=== PATIENT | male | born 1950 | race Caucasian/White ===

== ENCOUNTER → 2018-11-04 10:21 | Outpatient (CLI) | payer OTHER, SELFPAY ==
--- NOTE | 2018-11-04 | DI.RAD.S_ITS ---
PROCEDURE: XR CHEST 2V INDICATIONS: PNEUMONIA TECHNIQUE: 2 views of the chest were acquired. COMPARISON: None. FINDINGS: Surgical changes and devices: None. Lungs and pleura: Lungs are clear. No pleural effusions or pneumothorax. Mediastinum: Mediastinal contours are normal. Heart size is normal. Patient is status post valvular repair. Bones and chest wall: No suspicious bony abnormalities. Soft tissues appear unremarkable. IMPRESSION: No acute cardiopulmonary findings. Dictated by: Essie Ha M.D. on 11/04/2018 at 10:46 Approved by: Essie Ha M.D. on 11/04/2018 at 10:46
== END ==
PROVIDERS: Family Provider Internal Medicine; PCP Internal Medicine; Visit Provider Internal Medicine
DX: J18.9 Pneumonia, unspecified organism (principal)
CPT/HCPCS: 71046

== ENCOUNTER 2022-07-21 06:07 | Inpatient (IN) | payer OTHER, SELFPAY ==
[2022-07-21] VITALS (10 sets, daily range): BP systolic 139–171; BP diastolic 73–92; PULSE 67–79; RESP 17–20; TEMP 36.2–36.8; O2SAT 93–96; BMI 38.7
--- NOTE | 2022-07-21 05:47 | DI.CT.S_ITS ---
PROCEDURE: CT ANGIO HEAD AND NECK INDICATIONS: speech changes, off balance, hx of cva TECHNIQUE: Pre-contrast 4.5 mm thick sections acquired from the foramen magnum to the vertex. After the administration of intravenous contrast, 1 mm thick sections acquired from the aortic arch through the [place] of [place]. Post-contrast 4.5 mm thick sections then re-acquired from the foramen magnum to the vertex. 3-dimensional rikmpwv-dwfgdrgwg-nampgdofai (MIP) and/or volume rendering reformats were acquired of the central intracranial vasculature and neck separately. For radiation dose reduction, the following was used: automated exposure control, adjustment of mA and/or kV according to patient size. COMPARISON: None. FINDINGS: Image quality: Excellent. BRAIN: CSF spaces: Ventricles are normal in size and shape. Basal cisterns are patent. No extra-axial fluid collections. Brain: No midline shift. No intracranial bleeds or masses. Moderate-sized area of encephalomalacia in the right frontal lobe, (4/19). There is periventricular hypodensity most consistent with chronic microvascular ischemic disease. Skull and face: Calvarium and facial bones appear intact, without suspicious lesions. Orbits appear normal. Sinuses: Sinuses and mastoids are clear. HEAD CT ANGIOGRAPHY: Anterior circulation: Intracranial internal carotid arteries are normal in size and flow. The flow within the paired anterior cerebral arteries is normal and symmetric. The flow within the middle cerebral arteries is normal and symmetric. The anterior communicating artery is seen. No aneurysms are seen. Posterior circulation: Visualized portions of the vertebral arteries demonstrate normal caliber, and join to form a normal appearing basilar artery. Flow within the posterior cerebral arteries is normal and symmetric. No aneurysms are seen. NECK CT ANGIOGRAPHY: Carotid system: Mild plaque at the aortic arch. The great vessels demonstrate a conventional anatomy as they arise from the aortic arch. The origins of the common carotid arteries appear patent. The right CCA is medialized. The common carotid arteries demonstrate normal caliber and courses. The bifurcation regions are both widely patent. Mild plaque at the right carotid bulb. Ogzm-po-kvxswggs plaque at the left carotid bulb. The left ICA is somewhat tortuous. Posterior circulation: The origins of the vertebral arteries both appear widely patent. The left vertebral artery is dominant. Mild plaque at the origin of the right vertebral artery. The more superior extracranial portions of both vertebral arteries also demonstrate normal courses and calibers. They join to form a normal appearing basilar artery. Soft tissues: Visualized neck soft tissues demonstrate no suspicious abnormalities. Bones: No suspicious bony lesions. Moderate degenerative change in the cervical spine. Visualized cervical spine appears normally aligned. IMPRESSION: 1. No acute intracranial hemorrhage. 2. Moderate-sized area of encephalomalacia in the right frontal lobe due to prior infarction. 3. No large vessel occlusion. 4. No critical stenosis. Less than 50% stenosis at the carotid bulbs. Any quantitative measurements of stenosis were performed using NASCET criteria. Dictated by: Sam Gao M.D. on 07/21/2022 at 6:17 Approved by: Sam Gao M.D. on 07/21/2022 at 6:29
[2022-07-21 06:26] LABS: Add Manual Diff / Slide Review NO; Basophils Absolute Auto 0 /uL (0-100); Basophils Percent Auto 0.4 % (0-2); Eosinophils Absolute Auto 100 /uL (0-450); Hematocrit 42.5 % (41-53); Hemoglobin 14.4 g/dL (13.5-17.5); Lymphocytes Absolute Auto 900 /uL (1100-4500); Lymphocytes Percent Auto 14.4 % (25-40); Mean Corpuscular HGB Conc 33.8 % (30-36); Mean Corpuscular Hemoglobin 31.4 PG (26-34); Mean Corpuscular Volume 92.8 fL (80-100); Monocytes Absolute Auto 500 /uL (0-900); Monocytes Percent Auto 7.5 % (3-14); Neutrophils Absolute Auto 4800 /uL (1500-7000); Neutrophils Percent Auto 75.7 % (50-75); Platelet Count 130 X10^3/uL (150-400); Red Blood Cell Count 4.58 X10^6/uL (4.5-5.9); White Blood Cell Count 6.4 X10^3/uL (4.5-11.0)
[2022-07-21 06:34] LABS: INR 1.2 (0.9-1.3); Prothrombin Time 13.4 SECONDS (10.1-12.7)
[2022-07-21 06:37] LABS: BUN Creatinine Ratio 19.8 (6-22); Blood Urea Nitrogen 18 mg/dL (9-20); Calcium 9.4 mg/dL (8.4-10.2); Carbon Dioxide 27 mmol/L (22-32); Chloride 103 mmol/L (98-107); Creatine Kinase 87 U/L (55-170); Estimated Glomerular Filt Rate > 60 mL/min (>60); Glucose 121 mg/dL (80-110); HEMOLYSIS < 15 (0-50); PTT Partial Thromboplastin Tim 29 SECONDS (26-36); Potassium 3.8 mmol/L (3.4-5.1); Sodium 139 mmol/L (137-145)
--- NOTE | 2022-07-21 06:37 | ED.NEUROSD ---
HPI - Neuro Symptoms/Deficit <Yarely Andrew DO - Last Filed: 07/22/22 02:27> General Chief Complaint: Neuro Symptoms/Deficit Stated Complaint: stroke? Time Seen by Provider: 07/21/22 06:15 Source: patient and EMS Mode of arrival: EMS Limitations: no limitations History of Present Illness HPI Narrative: This is a 72-year-old male who presents after having his COVID swab yesterday with dysarthria, expressive aphasia being off balance. Patient states he is a little bit of, denies any chest pain or shortness of breath, denies any vertigo symptoms. No vision changes. No nausea or vomiting. No new GI or urinary symptoms. He states he does have some chronic urinary issues from prior TURP. Reported history was that patient has had a prior stroke, he says he has not. Patient states he was supposed to be on aspirin 81 mg daily recently restarted that but is denies taking any other daily meds. Patient states it was a COVID booster shot. Patient states his called this morning for transport. Related Data Home Medications Medication Instructions Recorded Confirmed metoprolol succinate 50 mg 50 mg PO DAILY ##0 05/05/17 07/21/22 tablet,extended release 24 hr (Toprol XL) gabapentin 600 mg tablet 600 mg PO DAILY 06/28/18 07/21/22 Allergies Allergy/AdvReac Type Severity Reaction Status Date / Time No Known Allergies Allergy Verified 07/21/22 11:04 Review of Systems <Yarely Andrew DO - Last Filed: 07/22/22 02:27> Review of Systems ROS Unobtainable: All systems reviewed & are unremarkable except as noted in HPI and below Patient History <Yarely Andrew DO - Last Filed: 07/22/22 02:27> Social History household members: spouse Smoking Status: Never smoker alcohol intake: current Smoking Status: Never smoker Substance Use Type: marijuana Exam <Yarely Andrew DO - Last Filed: 07/22/22 02:27> Narrative Exam Narrative: GEN: well nourished, well appearing male, alert and oriented x 3, patient appears to be in mild distress. HEENT: Atraumatic, pupils are equal round reactive to light, extraocular movements are intact, nares are clear, TMs are clear with no fluid, there is no conjunctival pallor. Throat is clear without any exudates, erythema, tonsillar enlargement or uvular deviation, mild deviation of tongue. HEART: Regular rate and rhythm without murmur, clicks, rubs. LUNGS:Lungs clear to auscultation, no wheezes, rales, crackles, chest moves symmetrically ABD:bowel sounds normal, soft, non-tender, no guarding, rebound, rigidity, no masses noted, no hepatosplenomegaly :No CVA tenderness MSCL: Non-tender, no muscle atrophy, patient has drift of right upper and lower extremity, gait not tested. NEURO:CN 2-12 intact, sensation normal, reflexes 2/4 upper and lower extremities. finger nose finger test normal with left, patient has difficulty with right finger., heel cheung test normal with left foot has quite a bit of difficulty with right foot to left cheung. Patient has significant dysarthria but is mostly understandable. Initial Vital Signs Initial Vital Signs: Vital Signs Temperature 98.2 F 07/21/22 06:10 Pulse Rate 76 07/21/22 06:10 Respiratory Rate 18 07/21/22 06:10 Blood Pressure 171/89 H 07/21/22 06:10 Pulse Oximetry 96 07/21/22 06:10 Oxygen Delivery Method 07/21/22 06:10 <Mehdi Bauer, DO - Last Filed: 07/21/22 08:07> Initial Vital Signs Initial Vital Signs: Vital Signs Temperature 98.2 F 07/21/22 06:10 Pulse Rate 76 07/21/22 06:10 Respiratory Rate 18 07/21/22 06:10 Blood Pressure 171/89 H 07/21/22 06:10 Pulse Oximetry 96 07/21/22 06:10 Oxygen Delivery Method 07/21/22 06:10 Scores <Yarely Andrew, DO - Last Filed: 07/22/22 02:27> NIH Stroke Scale Level of Conciousness: Alert, keenly responsive Ask month/age: Answers both questions correctly. Open/close eyes, close hand: Performs both tasks correctly Best gaze horizontal: Normal Visual bello: No visual loss Facial palsy: Minor paralysis, flattened nasolabial fold, asymmetry on smiling Left arm drift: No drift for full 10 sec Right arm drift: Drifts down, not to bed Left leg drift: No drift for full 5 sec Right leg drift: Drifts down, not to bed Limb ataxia: Present in two limbs Sensory on face/arms/legs: Mild to moderate sensory loss, can tell touch (face left) Best language: Mild to moderate, slurs some words Dysarthria: Mild to mod,some slurring Extinction or inattention: No abnormality Total NIH Stroke scale score: 8 <Mehdi Bauer, DO - Last Filed: 07/21/22 08:07> NIH Stroke Scale Total NIH Stroke scale score: 8 Course <Yarely Andrew, DO - Last Filed: 07/22/22 02:27> Orders Ordered: Acetaminophen (Acetaminophen 325 Mg Tablet) 650 mg PO Q6H PRN PRN Reason: Fever/Mild Pain (1-3) Last Admin: 07/21/22 14:07 Dose: 650 mg Documented By: Aspirin (Aspirin Ec 81 Mg Tablet) 81 mg PO DAILY PENDING SALE TO [facility] Last Admin: 07/21/22 11:12 Dose: 81 mg Documented By: Atorvastatin Calcium (Atorvastatin 20 Mg Tablet) 40 mg PO BEDTIME PENDING SALE TO [facility] Last Admin: 07/21/22 20:25 Dose: 40 mg Documented By: ANGELINE Docusate Sodium (Docusate 100 Mg Capsule) 100 mg PO BID PENDING SALE TO [facility] Last Admin: 07/21/22 20:25 Dose: 100 mg Documented By: Admin: 07/21/22 18:58 Dose: Not Given Documented By: MAURO Enoxaparin Sodium (Enoxaparin 40 Mg/0.4 Ml Syringe) 40 mg SUBCUT DAILY PENDING SALE TO [facility] Last Admin: 07/21/22 11:12 Dose: 40 mg Documented By: Ceftriaxone Sodium 1,000 mg/ (Sodium Chloride) 100 mls @ 200 mls/hr IV Q24H PENDING SALE TO [facility] Last Infusion: 07/21/22 17:25 Dose: 0 mls/hr Documented By: Admin: 07/21/22 11:12 Dose: 200 mls/hr Documented By: Naloxone HCl (Naloxone 0.4 Mg/Ml Vial) 0.2 mg IV Q2MIN PRN PRN Reason: Opiate Reversal Ondansetron HCl (Ondansetron 4 Mg/2 Ml Inj) 4 mg IV Q8HR PRN PRN Reason: Nausea And Vomiting Last Admin: 07/21/22 14:07 Dose: 4 mg Documented By: Sodium Chloride (Sodium Chloride 0.9% Flush) 10 ml IV PRN PRN PRN Reason: Flush Sodium Chloride (Sodium Chloride 0.9% Flush) 10 ml IV BID PENDING SALE TO [facility] Last Admin: 07/21/22 20:25 Dose: 10 ml Documented By: AM Discontinued Medications Sodium Chloride (Normal Saline 0.9%) 1,000 mls @ 150 mls/hr IV CONT PENDING SALE TO [facility] Last Admin: 07/21/22 07:45 Dose: 150 mls/hr Documented By: TRAVIS Vital Signs Vital signs: Vital Signs - 8 hr 07/21/22 06:10 Temperature 98.2 F Pulse Rate 76 Respiratory Rate 18 Blood Pressure 171/89 H Pulse Oximetry 96 Oxygen Delivery Method Room Air <Mehdi Bauer DO - Last Filed: 07/21/22 08:07> Orders Ordered: Acetaminophen (Acetaminophen 325 Mg Tablet) 650 mg PO Q6H PRN PRN Reason: Fever/Mild Pain (1-3) Last Admin: 07/21/22 14:07 Dose: 650 mg Documented By: Aspirin (Aspirin Ec 81 Mg Tablet) 81 mg PO DAILY PENDING SALE TO [facility] Last Admin: 07/21/22 11:12 Dose: 81 mg Documented By: Atorvastatin Calcium (Atorvastatin 20 Mg Tablet) 40 mg PO BEDTIME PENDING SALE TO [facility] Last Admin: 07/21/22 20:25 Dose: 40 mg Documented By: AM Docusate Sodium (Docusate 100 Mg Capsule) 100 mg PO BID PENDING SALE TO [facility] Last Admin: 07/21/22 20:25 Dose: 100 mg Documented By: Admin: 07/21/22 18:58 Dose: Not Given Documented By: MAURO Enoxaparin Sodium (Enoxaparin 40 Mg/0.4 Ml Syringe) 40 mg SUBCUT DAILY PENDING SALE TO [facility] Last Admin: 07/21/22 11:12 Dose: 40 mg Documented By: Ceftriaxone Sodium 1,000 mg/ (Sodium Chloride) 100 mls @ 200 mls/hr IV Q24H PENDING SALE TO [facility] Last Infusion: 07/21/22 17:25 Dose: 0 mls/hr Documented By: Admin: 07/21/22 11:12 Dose: 200 mls/hr Documented By: Naloxone HCl (Naloxone 0.4 Mg/Ml Vial) 0.2 mg IV Q2MIN PRN PRN Reason: Opiate Reversal Ondansetron HCl (Ondansetron 4 Mg/2 Ml Inj) 4 mg IV Q8HR PRN PRN Reason: Nausea And Vomiting Last Admin: 07/21/22 14:07 Dose: 4 mg Documented By: MS Sodium Chloride (Sodium Chloride 0.9% Flush) 10 ml IV PRN PRN PRN Reason: Flush Sodium Chloride (Sodium Chloride 0.9% Flush) 10 ml IV BID PENDING SALE TO [facility] Last Admin: 07/21/22 20:25 Dose: 10 ml Documented By: AM Discontinued Medications Sodium Chloride (Normal Saline 0.9%) 1,000 mls @ 150 mls/hr IV CONT PENDING SALE TO [facility] Last Admin: 07/21/22 07:45 Dose: 150 mls/hr Documented By: TRAVIS Vital Signs Vital signs: Vital Signs - 8 hr 07/21/22 06:10 Temperature 98.2 F Pulse Rate 76 Respiratory Rate 18 Blood Pressure 171/89 H Pulse Oximetry 96 Oxygen Delivery Method Room Air MDM - Neuro Symptoms/Deficit <Yarely Andrew, DO - Last Filed: 07/22/22 02:27> Lab Data Result diagrams: 07/21/22 06:15 07/21/22 06:15 Labs: Lab Results 07/21/22 07/21/22 07/21/22 Range/Units 06:15 06:15 06:15 WBC 6.4 (4.5-11.0) X10^3/uL RBC 4.58 (4.5-5.9) X10^6/uL Hgb 14.4 (13.5-17.5) g/dL Hct 42.5 (41-53) % MCV 92.8 (80-100) fL MCH 31.4 (26-34) PG MCHC 33.8 (30-36) % RDW 13.0 (11.6-14.8) % Plt Count 130 L (150-400) X10^3/uL Neut % (Auto) 75.7 H (50-75) % Lymph % (Auto) 14.4 L (25-40) % [place] % (Auto) 7.5 (3-14) % Eos % (Auto) 2.0 (2-4) % Baso % (Auto) 0.4 (0-2) % Neut # (Auto) 4800 (1072-2571) /uL Lymph # (Auto) 900 L (8278-6368) /uL [place] # (Auto) 500 (0-900) /uL Eos # (Auto) 100 (0-450) /uL Baso # (Auto) 0 (0-100) /uL PT 13.4 H (10.1-12.7) SECONDS INR 1.2 (0.9-1.3) APTT 29 (26-36) SECONDS Sodium 139 (137-145) mmol/L Potassium 3.8 (3.4-5.1) mmol/L Chloride 103 (98-107) mmol/L Carbon Dioxide 27 (22-32) mmol/L BUN 18 (9-20) mg/dL Creatinine 0.91 (0.66-1.25) mg/dL Estimated GFR > 60 (>60) mL/min BUN/Creatinine Ratio 19.8 (6-22) Glucose 121 H (80-110) mg/dL Calcium 9.4 (8.4-10.2) mg/dL Total Creatine Kinase 87 (55-170) U/L CK-MB (CK-2) TNP CK-MB (CK-2) Rel Index TNP Troponin I < 0.012 (0.01-0.034) ng/mL Urine RBC (0-5/HPF) Urine WBC (0-5/HPF) Ur Squamous Epith Cells (0-5/HPF) Urine Bacteria (None) U Opiates 300ng/mL cut (Negative) Ur Oxycodone Screen (Negative) Urine Methadone Screen (Negative) Ur Barbiturates Screen (Negative) U Tricyclic Antidepress (Negative) Ur Phencyclidine Scrn (Negative) Ur Amphetamines Screen (Negative) U Methamphetamines Scrn (Negative) Ur MDMA Scrn (Ecstasy) (Negative) U Benzodiazepines Scrn (Negative) Urine Cocaine Screen (Negative) U Marijuana (THC) Screen (Negative) SARS-CoV-2 (PCR) (Negative) 07/21/22 07/21/22 07/21/22 Range/Units 06:58 07:33 07:33 WBC (4.5-11.0) X10^3/uL RBC (4.5-5.9) X10^6/uL Hgb (13.5-17.5) g/dL Hct (41-53) % MCV (80-100) fL MCH (26-34) PG MCHC (30-36) % RDW (11.6-14.8) % Plt Count (150-400) X10^3/uL Neut % (Auto) (50-75) % Lymph % (Auto) (25-40) % [place] % (Auto) (3-14) % Eos % (Auto) (2-4) % Baso % (Auto) (0-2) % Neut # (Auto) (0092-7679) /uL Lymph # (Auto) (0378-8934) /uL [place] # (Auto) (0-900) /uL Eos # (Auto) (0-450) /uL Baso # (Auto) (0-100) /uL PT (10.1-12.7) SECONDS INR (0.9-1.3) APTT (26-36) SECONDS Sodium (137-145) mmol/L Potassium (3.4-5.1) mmol/L Chloride (98-107) mmol/L Carbon Dioxide (22-32) mmol/L BUN (9-20) mg/dL Creatinine (0.66-1.25) mg/dL Estimated GFR (>60) mL/min BUN/Creatinine Ratio (6-22) Glucose (80-110) mg/dL Calcium (8.4-10.2) mg/dL Total Creatine Kinase (55-170) U/L CK-MB (CK-2) CK-MB (CK-2) Rel Index Troponin I (0.01-0.034) ng/mL Urine RBC >100/hpf H (0-5/HPF) Urine WBC 30-100/hpf H (0-5/HPF) Ur Squamous Epith Cells 1-5 /hpf (0-5/HPF) Urine Bacteria Many (>30) H (None) U Opiates 300ng/mL cut Negative (Negative) Ur Oxycodone Screen Negative (Negative) Urine Methadone Screen Negative (Negative) Ur Barbiturates Screen Negative (Negative) U Tricyclic Antidepress Negative (Negative) Ur Phencyclidine Scrn Negative (Negative) Ur Amphetamines Screen Negative (Negative) U Methamphetamines Scrn Negative (Negative) Ur MDMA Scrn (Ecstasy) Negative (Negative) U Benzodiazepines Scrn Negative (Negative) Urine Cocaine Screen Negative (Negative) U Marijuana (THC) Screen Positive H (Negative) SARS-CoV-2 (PCR) Negative (Negative) Point of Care Testing Glucose POC 121 Urine Dip Bedside Urine Glucose Negative Bedside Urine Bilirubin - Negative Bedside Urine Ketone +/- 5 Urine Specific [place] 1.015 Bedside Urine Occult Blood +++ Bedside Urine pH 5.5 Bedside Urine Protein + 30 Bedside Urine Urobilinogen - Negative Bedside Urine Nitrite - Negative Bedside Urine Leukocytes + 70 Esterase ECG Data Attestation: I personally reviewed and interpreted this ECG as follows: Interpretation: Sinus rhythm, rate of 70 5p are 204 QRS of [address]TC [address] No acute ST elevation depression noted. MDM Narrative Medical decision making narrative: This is a 72-year-old male who is far outside the tPA window with onset at 10:30 a.m. on 07/20 but is still in the code IR window for about 4 more hours. Labs do not show clear acute cause, troponin is pending. CT and CT angio obtained and are pending. Patient signed out to Dr. Bauer while awaiting CT results. [0700] (Juancarlos) Patient received in sign out from [Aidenk]. I have reviewed the clinical course and performed an independent history and physical exam. CTA back now. No evidence of bleeding or dissection nor any large vessel occlusion that would put this patient on code IR pathway. Patient appropriate for hospitalization here for completion of workup Stroke Core Measures Exclusion Criteria TPA in CVA: Symptom Onset >3 or 4.5 Hours <Mehdi Bauer, - Last Filed: 07/21/22 08:07> Lab Data Labs: Lab Results 07/21/22 07/21/22 07/21/22 Range/Units 06:15 06:15 06:15 WBC 6.4 (4.5-11.0) X10^3/uL RBC 4.58 (4.5-5.9) X10^6/uL Hgb 14.4 (13.5-17.5) g/dL Hct 42.5 (41-53) % MCV 92.8 (80-100) fL MCH 31.4 (26-34) PG MCHC 33.8 (30-36) % RDW 13.0 (11.6-14.8) % Plt Count 130 L (150-400) X10^3/uL Neut % (Auto) 75.7 H (50-75) % Lymph % (Auto) 14.4 L (25-40) % [place] % (Auto) 7.5 (3-14) % Eos % (Auto) 2.0 (2-4) % Baso % (Auto) 0.4 (0-2) % Neut # (Auto) 4800 (3495-3260) /uL Lymph # (Auto) 900 L (2448-0454) /uL [place] # (Auto) 500 (0-900) /uL Eos # (Auto) 100 (0-450) /uL Baso # (Auto) 0 (0-100) /uL PT 13.4 H (10.1-12.7) SECONDS INR 1.2 (0.9-1.3) APTT 29 (26-36) SECONDS Sodium 139 (137-145) mmol/L Potassium 3.8 (3.4-5.1) mmol/L Chloride 103 (98-107) mmol/L Carbon Dioxide 27 (22-32) mmol/L BUN 18 (9-20) mg/dL Creatinine 0.91 (0.66-1.25) mg/dL Estimated GFR > 60 (>60) mL/min BUN/Creatinine Ratio 19.8 (6-22) Glucose 121 H (80-110) mg/dL Calcium 9.4 (8.4-10.2) mg/dL Total Creatine Kinase 87 (55-170) U/L CK-MB (CK-2) TNP CK-MB (CK-2) Rel Index TNP Troponin I < 0.012 (0.01-0.034) ng/mL Urine RBC (0-5/HPF) Urine WBC (0-5/HPF) Ur Squamous Epith Cells (0-5/HPF) Urine Bacteria (None) U Opiates 300ng/mL cut (Negative) Ur Oxycodone Screen (Negative) Urine Methadone Screen (Negative) Ur Barbiturates Screen (Negative) U Tricyclic Antidepress (Negative) Ur Phencyclidine Scrn (Negative) Ur Amphetamines Screen (Negative) U Methamphetamines Scrn (Negative) Ur MDMA Scrn (Ecstasy) (Negative) U Benzodiazepines Scrn (Negative) Urine Cocaine Screen (Negative) U Marijuana (THC) Screen (Negative) SARS-CoV-2 (PCR) (Negative) 07/21/22 07/21/22 07/21/22 Range/Units 06:58 07:33 07:33 WBC (4.5-11.0) X10^3/uL RBC (4.5-5.9) X10^6/uL Hgb (13.5-17.5) g/dL Hct (41-53) % MCV (80-100) fL MCH (26-34) PG MCHC (30-36) % RDW (11.6-14.8) % Plt Count (150-400) X10^3/uL Neut % (Auto) (50-75) % Lymph % (Auto) (25-40) % [place] % (Auto) (3-14) % Eos % (Auto) (2-4) % Baso % (Auto) (0-2) % Neut # (Auto) (8216-9913) /uL Lymph # (Auto) (1502-3646) /uL [place] # (Auto) (0-900) /uL Eos # (Auto) (0-450) /uL Baso # (Auto) (0-100) /uL PT (10.1-12.7) SECONDS INR (0.9-1.3) APTT (26-36) SECONDS Sodium (137-145) mmol/L Potassium (3.4-5.1) mmol/L Chloride (98-107) mmol/L Carbon Dioxide (22-32) mmol/L BUN (9-20) mg/dL Creatinine (0.66-1.25) mg/dL Estimated GFR (>60) mL/min BUN/Creatinine Ratio (6-22) Glucose (80-110) mg/dL Calcium (8.4-10.2) mg/dL Total Creatine Kinase (55-170) U/L CK-MB (CK-2) CK-MB (CK-2) Rel Index Troponin I (0.01-0.034) ng/mL Urine RBC >100/hpf H (0-5/HPF) Urine WBC 30-100/hpf H (0-5/HPF) Ur Squamous Epith Cells 1-5 /hpf (0-5/HPF) Urine Bacteria Many (>30) H (None) U Opiates 300ng/mL cut Negative (Negative) Ur Oxycodone Screen Negative (Negative) Urine Methadone Screen Negative (Negative) Ur Barbiturates Screen Negative (Negative) U Tricyclic Antidepress Negative (Negative) Ur Phencyclidine Scrn Negative (Negative) Ur Amphetamines Screen Negative (Negative) U Methamphetamines Scrn Negative (Negative) Ur MDMA Scrn (Ecstasy) Negative (Negative) U Benzodiazepines Scrn Negative (Negative) Urine Cocaine Screen Negative (Negative) U Marijuana (THC) Screen Positive H (Negative) SARS-CoV-2 (PCR) Negative (Negative) Point of Care Testing Glucose POC 121 Urine Dip Bedside Urine Glucose Negative Bedside Urine Bilirubin - Negative Bedside Urine Ketone +/- 5 Urine Specific [place] 1.015 Bedside Urine Occult Blood +++ Bedside Urine pH 5.5 Bedside Urine Protein + 30 Bedside Urine Urobilinogen - Negative Bedside Urine Nitrite - Negative Bedside Urine Leukocytes + 70 Esterase MDM Narrative Medical decision making narrative: This is a 72-year-old male who is far outside the tPA window with onset at 10:30 a.m. on 07/20 but is still in the code IR window for about 4 more hours. Labs do not show clear acute cause, troponin is pending. CT and CT angio obtained and are pending. Patient signed out to Dr. Bauer while awaiting CT results [0700] (Juancarlos) Patient received in sign out from [Lorrie]. I have reviewed the clinical course and performed an independent history and physical exam. CTA back now. No evidence of bleeding or dissection nor any large vessel occlusion that would put this patient on code IR pathway. Patient appropriate for hospitalization here for completion of workup Discharge Plan Departure Patient Disposition: Admitted As Inpatient Clinical Impression: Cerebrovascular accident Admit Date/Time: 07/21/22 08:00 Admit Provider: Ish Ricardo
--- NOTE | 2022-07-21 06:38 | PC.NURSE ---
To CT via stretcher with tech
[2022-07-21 06:49] LABS: Troponin I < 0.012 ng/mL (0.01-0.034)
[2022-07-21 07:26] LABS: COVID19 -Nasal RAPID Negative (Negative)
--- NOTE | 2022-07-21 07:30 | PC.NURSE ---
Report to dayshift RN team - care relinquished
[2022-07-21] MEDS: SODIUM CHLORIDE 0.9% 1,000 ML 150 ML IV (07:45)
[2022-07-21 08:09] LABS: Bacteria Urine Many (>30); RBC Urine >100/HPF (0-5/HPF); Squamous Epithelial Cell Urine 1-5 /HPF (0-5/HPF); WBC Urine 30-100/HPF (0-5/HPF)
[2022-07-21 08:11] LABS: UR Morphine/Opiate cutoff 300 Negative (Negative); Ur Creatinine Normal (Normal); Ur Specific Gravity Normal (Normal); Urine Amphetamines Negative (Negative); Urine Barbiturates Negative (Negative); Urine Benzodiazepines Negative (Negative); Urine Cocaine Negative (Negative); Urine MDMA Negative (Negative); Urine Methadone Negative (Negative); Urine Methamphetamines Negative (Negative); Urine Oxycodone Negative (Negative); Urine Phencyclidine Negative (Negative); Urine Tetrahydrocannabinol Positive (Negative); Urine Tricyclic Antidepressant Negative (Negative); Urine pH Normal (Normal)
--- NOTE | 2022-07-21 08:34 | DI.MRI.S_ITS ---
PROCEDURE: MR HEAD/BRAIN WO CON INDICATIONS: cva TECHNIQUE: Noncontrast axial T1 spin echo, axial T2 fast spin echo, sagittal and axial FLAIR, coronal T2 fast spin echo, axial gradient echo, axial diffusion and ADC through the brain. COMPARISON: [facility], CT, CT ANGIO HEAD AND NECK, 07/21/2022, 5:50. FINDINGS: Image quality: Excellent. CSF Spaces: Basal cisterns are patent. No extra-axial fluid collections. Ventricles are normal in size and shape. Brain: Focus of restricted diffusion in the left basal ganglia posterior limb, (). No restricted diffusion in the right frontal lobe. Moderate-sized area of encephalomalacia in the right frontal lobe. There is surrounding FLAIR signal hyperintensity. There is periventricular FLAIR signal hyperintensity. No intracranial masses or hemorrhage. Brainstem appears normal. Normal intravascular flow voids are present. Skull and face: Calvarium has normal marrow signal. Orbits appear normal. Sinuses: Sinuses and mastoids are clear. IMPRESSION: 1. Small acute left basal ganglia infarct. 2. Chronic moderate-sized area of encephalomalacia in the right frontal lobe due to prior infarction. Dictated by: Sam Gao M.D. on 07/21/2022 at 9:58 Approved by: Sam Gao M.D. on 07/21/2022 at 10:08
--- NOTE | 2022-07-21 09:21 | P.HP_ITS ---
History of Present Illness History of Present Illness Date Patient Seen: 07/21/22 Time Patient Seen: 08:30 Chief complaint: stroke? Narrative: Mr. Barnes is a 72M with PMH CVA, and recent COVID booster who presents with dysarthria and aphasia. He notes he had a stroke over a decade ago. He essentially had no persistent deficits. Yesterday his noted that he had difficulty with speech, she thought it was possible a reaction to his COVID booster. He went for a nap. His symptoms did not improve. He did have imbalance. He was not having any sensory deficits. No upper or lower extremity weakness. In the ED workup was done, vitals notable for afebrile with blood pressure 170s/80s. Labs notable for WBC 6.4, hgb 14.4, plts 130. Creatinine 0.91. INR 1.2. Trop negative. CT head and CTA angio head and neck showed no acute process. EKG showed sinus rhythm with no evidence of ischemia. NIH was 8. He was admitted for further treatment. Social history: no nicotine, no significant EtOH, daily marijuana Family history: states no cardiac or stroke history in family Patient History Family & Social History Tobacco & Substance use: Smoking Status Never smoker alcohol intake current Substance Use Type marijuana Meds Home Medications and Allergies Home Medications Medication Instructions Recorded Confirmed Type metoprolol succinate 50 mg ##0 05/05/17 06/28/18 History tablet,extended release 24 hr (Toprol XL) gabapentin 600 mg tablet 600 mg PO TID 06/28/18 06/28/18 History methocarbamol 500 mg tablet 500 mg PO QID neck pain #30 tabs 06/28/18 Rx (Robaxin) Allergies Allergy/AdvReac Type Severity Reaction Status Date / Time No Known Allergies Allergy Verified 07/21/22 11:04 Review of Systems Review of Systems Narrative: 14 systems reviewed and negative aside from what is noted in HPI Exam Vital Signs (past 8 hours): - 07/21/22 06:10 07/21/22 09:07 07/21/22 08:30 Temperature 98.2 F Pulse Rate 76 68 67 Respiratory Rate 18 20 18 Blood Pressure 171/89 H 168/88 H 153/79 H Pulse Oximetry 96 95 94 Oxygen Delivery Method Room Air 07/21/22 08:00 07/21/22 07:30 07/21/22 07:00 Temperature Pulse Rate 69 77 74 Respiratory Rate 17 17 17 Blood Pressure 154/80 H 170/85 H 168/92 H Pulse Oximetry 94 94 95 Oxygen Delivery Method Oxygen Delivery Method Room Air Narrative Exam Narrative: GEN: no acute distress HEENT: moist mucous membranes, PERRL NECK: trachea midline, no JVD CV: regular rate and rhythm, no murmurs PULM: clear bilaterally, no wheezes, rhonchi, rales ABD: soft, nontender, nondistended, no organomegaly EXT: warm and well perfused with no edema NEURO: awake, alert, moderate expressive aphasia, cranial nerves 2-12 intact, no sensory deficit, notable facial droop, normal upper and lower extremity strength Objective Labs Result Diagrams: 07/21/22 06:15 07/21/22 06:15 Labs: Laboratory Results - last 24 hr 07/21/22 07/21/22 07/21/22 06:15 06:15 06:15 WBC 6.4 RBC 4.58 Hgb 14.4 Hct 42.5 MCV 92.8 MCH 31.4 MCHC 33.8 RDW 13.0 Plt Count 130 L Neut % (Auto) 75.7 H Lymph % (Auto) 14.4 L [place] % (Auto) 7.5 Eos % (Auto) 2.0 Baso % (Auto) 0.4 Neut # (Auto) 4800 Lymph # (Auto) 900 L [place] # (Auto) 500 Eos # (Auto) 100 Baso # (Auto) 0 PT 13.4 H INR 1.2 APTT 29 Sodium 139 Potassium 3.8 Chloride 103 Carbon Dioxide 27 BUN 18 Creatinine 0.91 Estimated GFR > 60 BUN/Creatinine Ratio 19.8 Glucose 121 H Calcium 9.4 Total Creatine Kinase 87 CK-MB (CK-2) TNP CK-MB (CK-2) Rel Index TNP Troponin I < 0.012 Urine RBC Urine WBC Ur Squamous Epith Cells Urine Bacteria U Opiates 300ng/mL cut Ur Oxycodone Screen Urine Methadone Screen Ur Barbiturates Screen U Tricyclic Antidepress Ur Phencyclidine Scrn Ur Amphetamines Screen U Methamphetamines Scrn Ur MDMA Scrn (Ecstasy) U Benzodiazepines Scrn Urine Cocaine Screen U Marijuana (THC) Screen SARS-CoV-2 (PCR) 07/21/22 07/21/22 07/21/22 06:58 07:33 07:33 WBC RBC Hgb Hct MCV MCH MCHC RDW Plt Count Neut % (Auto) Lymph % (Auto) [place] % (Auto) Eos % (Auto) Baso % (Auto) Neut # (Auto) Lymph # (Auto) [place] # (Auto) Eos # (Auto) Baso # (Auto) PT INR APTT Sodium Potassium Chloride Carbon Dioxide BUN Creatinine Estimated GFR BUN/Creatinine Ratio Glucose Calcium Total Creatine Kinase CK-MB (CK-2) CK-MB (CK-2) Rel Index Troponin I Urine RBC >100/hpf H Urine WBC 30-100/hpf H Ur Squamous Epith Cells 1-5 /hpf Urine Bacteria Many (>30) H U Opiates 300ng/mL cut Negative Ur Oxycodone Screen Negative Urine Methadone Screen Negative Ur Barbiturates Screen Negative U Tricyclic Antidepress Negative Ur Phencyclidine Scrn Negative Ur Amphetamines Screen Negative U Methamphetamines Scrn Negative Ur MDMA Scrn (Ecstasy) Negative U Benzodiazepines Scrn Negative Urine Cocaine Screen Negative U Marijuana (THC) Screen Positive H SARS-CoV-2 (PCR) Negative Assessment & Plan Assessment & Plan narrative: 1. Acute aphasia, probable acute CVA wit history of CVA -noted to have acute onset of symptoms nearly 24 hours earlier, well outside window for TPA -CT head and CTA head/neck showed encephalomalacia from old stroke, and no large vessel occlusion -not on aspirin or statin at home -NIH in ED was 8 -NIH scores q4h -start aspirin and statin here -allow for permissive hypertension -ordered MRI to confirm stroke -tele to monitor for afib -ECHO ordered to eval for pfo -check lipids, a1c to eval for modifiable risk factors -PT/OT, speech eval -swallow screen before eating 2. Hypertension -permissive hypertension as above -may need new medications for BP on dc 3. UTI -UA noted to have WBCs and bacteria, consistent with UTI -urine culture pending -started ceftriaxone day 1 07/21 4. Thrombocytopenia -mild -possibly chronic -trend daily CODE: Full Proxy: Kristen Barnes, I have utilized all available resources to reconcile the patient's home medications Time Spent With Patient Critical Care time: I spent a total of [] minutes of critical care time on this patient's care toda y; this time is exclusive of procedural time.
--- NOTE | 2022-07-21 09:31 | DI.ECHO.S_ITS ---
[facility]---------+ [facility] +---------+ : : [address] : : : : [place] : : : : [id number] : : : : Phone: [phone]+ Echocardiogram Report + + :Name: RIA WILLARD Study Date: 07/21/2022 : :[facility] ReadingLocation: : : Gender: Male : :: 1950 Age: 72 yrs BP: 168/88 mmHg: :Reason For Study: CVA : :Ordering Physician: : :SANJUANITA PLASENCIA Performed By: Raimro Ordaz : :Referring: SANJUANITA PLASENCIA : + + Interpretation Summary Sinus rhythm. Mildly dilated left ventricle with mild concentric left ventricular hypertrophy. Normal wall motion and left ventricular systolic function. Ejection fraction is 60-65%. Stage I diastolic dysfunction. Mild left atrial enlargement, otherwise normal chamber sizes. No significant valvular abnormalities. No source of embolism found. No prior study available for comparison. Procedure: A two-dimensional transthoracic echocardiogram with color flow and Doppler was performed. The study quality was technically adequate. There is no prior echocardiogram noted for this patient. The patient was in normal sinus rhythm during the exam. Left Ventricle: There is mild concentric left ventricular hypertrophy. The left ventricle is mildly dilated. Left ventricular systolic function is normal. The ejection fraction is estimated to be 60-65%. There are no focal wall motion abnormalities. Diastolic parameters suggest a relaxation abnormality of the left ventricle, consistent with probable normal filling pressures. Right Ventricle: The right ventricle is normal in size and function. Atria: The left atrium grossly appears normal in size. Right atrial size is normal. The interatrial septum grossly appears intact with no obvious evidence for an atrial septal defect. Mitral Valve: The mitral valve is normal in structure and function. There is mild mitral regurgitation. Aortic Valve: The aortic valve is normal in structure and function. There is trace aortic regurgitation. Tricuspid Valve: The tricuspid valve is normal in structure and function. There is mild tricuspid regurgitation. Right ventricular systolic pressure is estimated to be 27 mmHg plus the clinically estimated CVP which cannot be estimated on this exam. Pulmonic Valve: The pulmonic valve is not well visualized. Great Vessels: The aortic root is moderately dilated. The dimensions of the ascending aorta are normal. The inferior vena cava was not well visualized. Pericardium/ Pleura There is no pericardial effusion. There is no pleural effusion. MMode/2D Measurements & Calculations LVIDd: 6.2 cm LVOT diam: 2.6 cm LVIDs: 4.0 cm Ao root diam: 4.4 cm FS: 35.3 % asc Aorta Diam: 3.5 cm IVSd: 1.2 cm LVPWd: 1.2 cm LA A2 area: 25.5 cm2 RA long axis: 6.8 cm LA A4 area: 22.5 cm2 RA area: 12.0 cm2 LA length (vol): 6.1 cm RA vol: 18.0 ml LA vol: 80.0 ml TAPSE: 1.9 cm LVAd ap4: 38.1 cm2 LVAs ap4: 18.9 cm2 LVLs ap4: 7.1 cm Doppler Measurements & Calculations Ao V2 max: 135.2 cm/sec LVOT Max Carlos: 102.2 cm/sec Ao V2 mean: 97.2 cm/sec LV V1 max P.2 mmHg Ao max P.3 mmHg LV V1 VTI: 21.1 cm Ao mean P.1 mmHg TRISH(I,D): 4.2 cm2 Ao V2 VTI: 26.3 cm TRISH(V,D): 4.0 cm2 sev ratio: 0.80 MV E max carlos: 36.0 cm/sec TR max carlos: 261.8 cm/sec MV A max carlos: 67.1 cm/sec TR max P.5 mmHg MV E/A: 0.54 Med Peak E' Carlos: 4.3 cm/sec E/E' med: 8.3 Lat Peak E' Carlos: 13.0 cm/sec E/E' lat: 2.8 E/e' average: 5.5 MV dec time: 0.47 sec SV(LVOT): 110.8 ml Electronically signed by: Kesha Martinez M.D. on Reading Physician:07/21/2022 06:25 PM
--- NOTE | 2022-07-21 10:05 | PC.NURSE ---
Day shift: Pt on unit from ED at approx 0950. VS WNL. Oriented to room and call light. Currently having difficulty with speech. Is able to clear secreations though. Will perform RN swallow eval. Spouse in room for support. Placed on tele per MD orders. Denies any pain or chest pain. Also denies any nausea. Off unit for MRI at approx 1010.
--- NOTE | 2022-07-21 10:39 | PC.NURSE ---
Day shift: Pt back in room from MRI at approx 1040. building services technician in room now to perform echo.
[2022-07-21] MEDS: ENOXAPARIN 40 MG/0.4 ML SYRINGE SUBCUT (11:12)
[2022-07-21] MEDS: ASPIRIN EC 81 MG TABLET PO (11:12)
[2022-07-21] MEDS: cefTRIAXone 1,000 MG in SODIUM CHLORIDE 0.9% 100 ML 200 MG IV (11:12)
--- NOTE | 2022-07-21 13:46 | PT.IIE ---
Current Diagnoses Cerebral infarction, unspecified (07/21/22) Physical Therapy Inpatient Evaluation/Re-Eval M1 PT/OT-IP Prior Functional Status Start: 07/21/22 13:03 Freq: NEEDED Status: Active Protocol: Document 07/21/22 13:03 AMB (Rec: 07/21/22 13:46 AMB [id number]) Medical Review Prior Functional Status Medical History Reviewed Yes Mobility and Gait Pt reports he was able to drive and walk in the community. Chronic pain limited his ambulation but, for example, he was able to walk through the grocery store . Prior Functional Level (Other details) Denies using AD. Social History Household Members spouse Living Arrangements House Number of Floors (Floors) One Floor Number of Stairs To Enter/Railing? One stair -- pt's not available and pt's ability to provide clear history is mixed Employment Status Retired M2 PT-IP Current Condition Start: 07/21/22 13:03 Freq: NEEDED Status: Active Protocol: Document 07/21/22 13:03 AMB (Rec: 07/21/22 13:46 AMB [id number]) Physical Therapy Current Condition Current Condition Evaluation Date 07/21/22 Treatment Diagnosis CVA--L basal ganglia Onset Date 07/20/22 M3 PT-IP Subjective Start: 07/21/22 13:03 Freq: NEEDED Status: Active Protocol: Document 07/21/22 13:03 AMB (Rec: 07/21/22 13:46 AMB [id number]) Subjective Physical Therapy Visit Type Type Initial Evaluation Visit Start Time 11:00 Visit Stop Time 11:30 Total Visit Minutes 30 Physical Therapy Visit Comments Patient Comments Pt is with nursing who are changing out his gown due to urinary incontinence. Pt amenable to PT afterwards. M4 PT-IP Mobility and Gait Start: 07/21/22 13:03 Freq: NEEDED Status: Active Protocol: Document 07/21/22 13:03 AMB (Rec: 07/21/22 13:46 AMB [id number]) PT-Bed Mobility Assessment Rolling Type of Rolling Log Rolling,Bilateral Level of Assist Standby Assistance Supine to Sit Supine to Sit Minimal Assistance Sit to Supine Sit to Supine Minimal Assistance PT-Transfer Assessment Sit to and From Stand Sit to and from Stand Minimal Assistance Equipment Transfer Assistive Device Gait Belt,Front Wheeled Walker Transfers Transfer Destination Bed Transfer Ability Level of Assist Minimal Assistance Comments Mobility Comments Lamine has chronic low back pain (prior lumbar surgery) that limits his mobility baseline. He was able to roll with supervision, required cues for safety with sit to stand and Kaitlynn. Gait Assessment Gait Gait Assistance Required: Contact Guard Assist Assistive Devices Assistive Device Gait Belt,Front Wheeled Walker Gait Deviations General Gait Pattern Decreased Stride Length, Decreased Feet Clearance, Flexed Trunk Factors Limiting Gait Function Factors Limiting Gait Function Decreased Sensation,Decreased Strength,Pain,Poor Balance Comments Gait Comments Chevy reports increased L knee pain with ambulation. He reports being lightheaded and dizzy, good blood pressure during tx. Ambulated 40' in room with FWW with Kaitlynn. Fatigues quickly. Some decreased proprioception limits gait, relies on vision for awareness of R UE. PT-Balance Assessment Sitting Balance and Reactions Static Sitting Balance Ability Good Dynamic Sitting Balance Ability Good Standing Balance and Reactions Static Standing Balance Ability Fair Dynamic Standing Balance Ability Poor M5 PT-IP Objective Assessments Start: 07/21/22 13:03 Freq: NEEDED Status: Active Protocol: Document 07/21/22 13:03 AMB (Rec: 07/21/22 13:46 AMB [id number]) Orientation Orientation/Cognition Language Function Ability Garbled Speech,Word Finding Difficulties Safety Awareness Decreased Safety Awareness Gross Range of Motion Upper Extremity ROM Assessment Within Functional Limits Lower Extremity ROM Assessment Within Functional Limits Strength Upper Extremity Strength Assessment Right Impaired Lower Extremity Strength Assessment Right Impaired Comments Strength Comments At least 4/5 strength through ankle, knee, hip, 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 Sensation Assessment Sensation Gross Sensation Right UE Impaired,Right LE Impaired Sensation Description Tingling Muscle Tone Muscle Tone WNL Yes M6 PT-IP Treatment Start: 07/21/22 13:03 Freq: NEEDED Status: Active Protocol: Document 07/21/22 13:03 AMB (Rec: 07/21/22 13:46 AMB [id number]) Physical Therapy Treatment Education Education Provided Safety M7 PT-IP Assessment and Plan Start: 07/21/22 13:03 Freq: NEEDED Status: Active Protocol: Document 07/21/22 13:03 AMB (Rec: 07/21/22 13:46 AMB [id number]) PT Summary Assessment and Plan Potential Rehabilitation Potential Good Status of Condition at Evaluation Evolving Summary Impairments Pain,Strength,Balance, Transfers,Gait Assessment Summary Chevy presents with L basal ganglia CVA with resultant R sided weakness, numbness, balance deficits and expressive speech deficits. At baseline he was living in his home with his , although full history is difficult due to his speech. He needed Kaitlynn with safety with transfers, but was able to ambulate with CGA for 40'. Will need to further address how much assistance his is able to provide in the home and to assess if his mobility is significantly improving before d/c. If pt to d/c home would need FWW. Goals Bed Mobility Goal Independent Transfer Goal Standby Assistance Gait Goal Standby Assistance Gait Distance 500 Days to Meet Goals 5 Frequency of Treatment Frequency Of Treatment Once a Day Recommendations To Nursing Amount of Assist Needed 1 Person Assist Discharge Recommendations PT Discharge Recommendations Home vs SNF Equipment Needed for Home Before FWW Discharge Transportation Needs at Discharge Private Vehicle,Wheelchair/ Cabulance
[2022-07-21] MEDS: ONDANSETRON 4 MG/2 ML INJ IV (14:07)
[2022-07-21] MEDS: ACETAMINOPHEN 325 MG TABLET 650 MG PO (14:07)
[2022-07-21] MEDS: DOCUSATE 100 MG CAPSULE PO (20:25)
[2022-07-21] MEDS: SODIUM CHLORIDE 0.9% FLUSH 10 ML IV (20:25)
[2022-07-21] MEDS: ATORVASTATIN 20 MG TABLET 40 MG PO (20:25)
[2022-07-22] VITALS (9 sets, daily range): BP systolic 131–146; BP diastolic 62–86; PULSE 74–89; RESP 18–19; TEMP 35.8–36.7; O2SAT 93–97
[2022-07-22] MEDS: ACETAMINOPHEN 325 MG TABLET 650 MG PO ×2 (04:58→12:03)
[2022-07-22 05:35] LABS: Add Manual Diff / Slide Review NO; Basophils Absolute Auto 0 /uL (0-100); Basophils Percent Auto 0.6 % (0-2); Eosinophils Absolute Auto 100 /uL (0-450); Eosinophils Percent Auto 1.6 % (2-4); Hematocrit 40.7 % (41-53); Hemoglobin 13.7 g/dL (13.5-17.5); Lymphocytes Absolute Auto 800 /uL (1100-4500); Lymphocytes Percent Auto 13.9 % (25-40); Mean Corpuscular HGB Conc 33.7 % (30-36); Mean Corpuscular Hemoglobin 31.4 PG (26-34); Mean Corpuscular Volume 93.2 fL (80-100); Monocytes Absolute Auto 500 /uL (0-900); Monocytes Percent Auto 8.5 % (3-14); Neutrophils Absolute Auto 4200 /uL (1500-7000); Neutrophils Percent Auto 75.4 % (50-75); Platelet Count 126 X10^3/uL (150-400); Red Blood Cell Count 4.37 X10^6/uL (4.5-5.9); Red Cell Distribution Width 12.8 % (11.6-14.8); White Blood Cell Count 5.6 X10^3/uL (4.5-11.0)
--- NOTE | 2022-07-22 05:42 | PC.NURSE ---
First NIH score: 10, RN let Hospitalist know, no new orders. Second NIH: 4. Hospitalist changed order from Q4 to Qshift for NIH score. Pt ambulating to bathroom w/ FWW 1PA w/ gait belt. Pt educated to walk slower and to turn with walker in front while walking.
[2022-07-22 05:48] LABS: BUN Creatinine Ratio 20.7 (6-22); Blood Urea Nitrogen 18 mg/dL (9-20); Calcium 8.9 mg/dL (8.4-10.2); Carbon Dioxide 27 mmol/L (22-32); Chloride 102 mmol/L (98-107); Cholesterol 173 mg/dL (140-199); Estimated Glomerular Filt Rate > 60 mL/min (>60); Glucose 120 mg/dL (80-110); HDL Cholesterol 47 mg/dL (40-60); HEMOLYSIS < 15 (0-50); LDL Cholesterol Calculated 115 mg/dL (<100); Potassium 3.7 mmol/L (3.4-5.1); Sodium 138 mmol/L (137-145); Triglycerides 54 mg/dL (35-150)
[2022-07-22 05:54] LABS: Hemoglobin A1C% w Est Avg Glu 5.5 % (4.0-6.0)
--- NOTE | 2022-07-22 09:33 | CM.DANOTE ---
Addendum entered by Whit Parada R.N. 07/22/22 15:33: Received a message from Tim at [facility] that they do have beds available, but looks like this is a weak case for [facility] to cover. Faxed over P.T, O.T, and speech notes to Kathi at [facility], will follow up with a call tomorrow. Asked spouse and patient if [facility] does not cover, would patient like to attempt regular rehab at skilled facility, or home with home health. Spouse indicated, would rather do home with home health. Can revisit this in the am. Addendum entered by Whit Parada R.N. 07/22/22 11:19: O.T. had spoken to family, feel that he would be a good candidate for acute inpatient rehab. Called [facility], did speak to Vandana. She has a bed by tomorrow, and the next day. Rimma will fax over the referral, as soon as the disciplines for therapy are in. Prior to Vandana calling, had left a message with Tim at [facility], to see if there are beds. Called Kathi Oneal Saldivar ed case manager. Asked if patient is ready for today, she had not yet received clinicals. Do not yet have a bed for today. She indicated to let her know by tomorrow if patient is ready. She will also need clinicals, which Rimma normally sends. Original Note: DCP: Case received, EMR reviewed and met with patient. Introduced self and role. Was able to obtain some information regarding patient's baseline mobility prior to hospitalization. DCP assessment completed with information currently available. Patient is a 72 year old male who admitted yesterday morning to the care of the hospitalist team. PCP: Max Ceron here in [place]. Payer: confirmed: [facility]. Patient came to the hospital via ambulance secondary to having apasia, being off balance. Patient does have history of CVA. Patient indicated, he felt that the symptoms were from a COVID booster shot. Patient diagnosed with Acute aphasia, probable acute CVA, with history of CVA. Met briefly with patient in his room. Nursing indicated, his symptoms have improved. Patient was able to use the bathroom. Having some difficulty with speech, patient will be working with speech. He has worked with [facility], and will do so again today. Confirmed that he resides in [facility] with spouse, Kristen, and is independent at his baseline. P: DCP to continue to follow. Will discuss further at team rounds. If he needs acute rehab, would need to contact [facility] as well. Whit Parada RN/Safety Professional Discharge Planning/Care Management CM Discharge Assessment Start: 07/22/22 09:31 Freq: Status: Active Protocol: Document 07/22/22 09:31 (Rec: 07/22/22 09:33 [id number]) Discharge Planning Assessment Assigned Purchasing Expeditor Whit Parada RN/Safety Professional Advance Directives? No History Provided By Patient,Family Member, Significant Other,Medical Record Prior Living Arrangements House Household Members spouse Type of transporation used prior to Drives own vehicle admit Independent with ADL's Yes Is patient alert and oriented? Yes Caregiver for Another No Comment Will see how he does with P.T, patient is supposed to work with speech today, as well. Transportation Arrangement Spouse Referrals Initiated Other Additional Comment Will discuss further at team rounds, patient was ambulating in his room, getting ready to work with speech Medicare Choice List Provided No Has Agency SNF been contacted No Whiteboard Updated in Patient Room with Yes name and ext. # of Purchasing Expeditor Review Status In Process Next Review Type Continued Stay Review
[2022-07-22] MEDS: ENOXAPARIN 40 MG/0.4 ML SYRINGE SUBCUT (09:38)
[2022-07-22] MEDS: SODIUM CHLORIDE 0.9% FLUSH 10 ML IV ×2 (09:38→23:35)
[2022-07-22] MEDS: ASPIRIN EC 81 MG TABLET PO (09:38)
[2022-07-22] MEDS: DOCUSATE 100 MG CAPSULE PO ×2 (09:38→21:25)
--- NOTE | 2022-07-22 10:41 | OT.IP.EVAL ---
Current Diagnoses Cerebral infarction, unspecified (07/21/22) Occupational Therapy Inpatient Evaluation/Re-Eval M1 PT/OT-IP Prior Functional Status Start: 07/21/22 13:03 Freq: NEEDED Status: Active Protocol: Document 07/22/22 10:47 CGR (Rec: 07/22/22 11:03 R [id number]) Medical Review Prior Functional Status Medical History Reviewed Yes Communication Pt is an effective verbal communicator however, his words are slurred making him difficult to understand at times. Mobility and Gait Pt reports he was able to drive and walk in the community. Chronic pain limited his ambulation but, for example, he was able to walk through the grocery store . Activities of Daily Living and IADL's Pt was IND in all ADLs and functional mobility prior to admit. Prior Functional Level (Other details) Denies using AD. Social History Household Members spouse Living Arrangements House Number of Floors (Floors) Two Floors Number of Stairs To Enter/Railing? 1 step to enter to the main floor. Basement is where the workout room and laundry is and pt does not need to go down there. Home Environment High Toilet,Walk in Shower,Tub /Shower Employment Status Retired Additional Social History Comment Pt has a walking stick but does not use it regularly. 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 Pt states that he typically uses his bath tub for bathing as he prefers baths to showers. M2 OT-IP Current Condition Start: 07/22/22 10:47 Freq: Status: Active Protocol: Document 07/22/22 10:47 CGR (Rec: 07/22/22 11:03 CGR [id number]) Occupational Therapy Current Condition Current Condition Evaluation Date 07/22/22 Treatment Diagnosis L CVA with dysarthria, aphasia , UTi, HTN, R weakness Diagnosis Onset Date 07/21/22 M3 OT- IP Subjective and Pain Start: 07/22/22 10:47 Freq: Status: Active Protocol: Document 07/22/22 10:47 CGR (Rec: 07/22/22 11:03 R [id number]) OT- Subjective Occupational Therapy Visit Type Type Initial Evaluation Visit Start Time 10:15 Visit Stop Time 10:41 Total Visit Minutes 26 Notes Pt's , Kristen, was present throughout session. Occupational Therapy Visit Comments Patient Comments I am fine without a walker OT Pain Assessment Pain When Pain Assessed At Rest Pain Present Pain Present Denied Pain M4 OT- IP ADL's Start: 07/22/22 10:47 Freq: Status: Active Protocol: Document 07/22/22 10:47 CGR (Rec: 07/22/22 11:03 CGR [id number]) OT [id number] Comments OT Self-Feeding Comments not meal time OT ADL-Grooming General Evaluation Grooming Ability Standby Assistance Areas Needing Assistance Face Washing Comments OT Grooming Comments standing at sink OT ADL-Oral Care General Eval Oral Care Ability Standby Assistance Areas of Assistance Brushing Teeth Comments Oral Care Comments standing at sink, pt declined removing dentures and brushes dentures in his mouth only OT ADL-Dressing General Eval Lower Body Dressing Ability Standby Assistance Areas Needing Assistance Socks Comments OT Dressing Comments Pt needed VC to see that the infrastructure software engineer on his socks were facing upwards. Pt was able to fix prior to standing up. OT ADL-Toileting General Evaluation Toileting Ability Standby Assistance Comments OT Toileting Comments for toileting on toilet OT ADL-Bathing Comments OT Bathing Comments not performed M5 OT- IP IADL's Start: 07/22/22 10:47 Freq: Status: Active Protocol: Document 07/22/22 10:47 CGR (Rec: 07/22/22 11:03 R [id number]) OT-Instrumental Activities of Daily Living Deficits IADL Deficits Identified Deficits Home Safety Awareness Awareness of Need for Assistance at Home Decreased Awareness Ability to Problem Solve Emergency Able to Problem Solve Situations Home Safety Comments Pt is able to problem solve but at times appears to be in denial of his deficits. 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 Pt displays signs of mild to moderate R neglect. M6 OT- IP Functional Cognition Start: 07/22/22 10:47 Freq: Status: Active Protocol: Document 07/22/22 10:47 CGR (Rec: 07/22/22 11:03 CGR [id number]) Cognitive Factors Limiting Selfcare Function Cognitive Ability Level of Alertness Alert Patient Orientation Name,Age,Birthday,Month,Date, Year,Day of Week,Place, Situation Attention Span Ability Capable of Focused Attention, Capable of Sustained Attention Ability to Follow Commands Able to Follow One Step Commands with Increased Time, Able to Follow One Step Commands with Repetition Cognitive Comments Cognitive Assessment Comments Pt would benefit from formal cog assessment. OT- Vision and Hearing OT- Hearing Assessment OT- Hearing Assessment WFL OT- Vision Assessment Visual Acuity Glasses For Reading Visual Attentiveness WFL Occular Pursuits WFL Visual Convergence Impaired Visual Bello WFL Vision Assessment Comments Pt had difficulty following commands for visual assessment . Pt's visual bello appear intact but pt runs into things on his right with the walker while ambulating. R neglect vs visual deficit? M7 OT- IP Mobility and Balance Start: 07/22/22 10:47 Freq: Status: Active Protocol: Document 07/22/22 10:47 CGR (Rec: 07/22/22 11:03 CGR [id number]) OT- Bed Mobility Assessment Supine to Sit Supine to Sit Assist Standby Assistance Scooting Scooting to Edge of Bed Standby Assistance OT-Transfer Assessment Sit to and From Stand Sit to and from Stand Contact Guard Assistance Transfers Transfer Ability Minimal Assistance Technique Transfer Destination Bed,Chair,Toilet Transfer Technique Stand Step Pivot Devices Transfer Assistive Devices Gait Belt,Front Wheeled Walker Comments Mobility Comments Pt needs assist with use of walker for safety and VC to maintain safety. OT- Balance Assessment Sitting Balance and Reactions Static Sitting Balance Ability Good Dynamic Sitting Balance Ability Good M8 OT- IP Objective Assessments Start: 07/22/22 10:47 Freq: Status: Active Protocol: Document 07/22/22 10:47 CGR (Rec: 07/22/22 11:03 CGR [id number]) OT Gross Range of Motion Upper Extremity Range of Motion Assessment Within Functional Limits OT Strength Upper Extremity Strength Assessment Right Impaired Comments Strength Comments R grossly 4-/5, L grossly 4/5 OT- Coordination Assessment Upper Extremity Finger to Nose Test Right UE Impaired Finger Tapping Test Within Functional Limits Comments Coordination Comments Pt's fine motor apears intact for simple ADL tasks but likely would show deficits with more difficult fine motor tests. Recommend peg board testing at next session. OT-Muscle Tone Assessment Muscle Tone WNL Yes OT Sensation Assessment Comments Summary Comments Pt states typical sensation Edema Edema Absent M9 OT- IP Assessment and Plan Start: 07/22/22 10:47 Freq: Status: Active Protocol: Document 07/22/22 10:47 CGR (Rec: 07/22/22 11:03 CGR [id number]) OT Summary Assessment and Plan Potential Rehabilitation Potential Excellent Analytic Complexity at Evaluation High Summary OT Impairments Strength,Balance,Coordination, Functional Cognition, Functional Mobility,Grooming, Dressing,Toileting,Bathing, Toilet Transfers,Shower Transfers,Activity Tolerance Progress Towards Goals Slow Progress due to Activity Tolerance Assessment Summary Pt presents as a high complexity evaluation s/p admit for new onset CVA. MRI shows small acute L basal ganglia infarct. Pt displays deficits to his R upper and Lower body that are impacting his ability to mobilize safely and perform ADLs safely. Pt's speech is also slurred. Pt would benefit from acute rehab services to address his deficits s/p new onset CVA. Pt is agreeable to acute services. Goals Self-Feeding Goal Independent Grooming Goal Independent Dressing Goal Independent Toileting Goal Independent Bathing Goal Independent Toilet Transfer Goal Independent Shower Transfer Goal Independent Days to Meet Goals 30 Frequency of Treatment Frequency Of Treatment Once a Day Treatment Plan OT Treatment Plan ADL Training,Functional Cognition Training,Functional Mobility,Patient/Family Education,Discharge Planning Other Treatment Recommendations and Next formal cog assessment, 9 hole Treatment Focus peg test on the R. Discharge Recommendations OT Discharge Recommendations Acute Rehab Transportation Needs at Discharge Private Vehicle
--- NOTE | 2022-07-22 11:13 | P.PN_ITS ---
Subjective Subjective Date Patient Seen: 07/22/22 Time Patient Seen: 08:00 Interval history: He continues to have difficulty with speech and have coordination issues with ambulation. He feels about the same as yesterday. Exam Vital Signs (past 8 hours): - 07/22/22 04:17 07/22/22 05:14 07/22/22 09:00 Temperature 98.0 F 96.4 F L Pulse Rate 83 79 88 Respiratory Rate 18 18 19 Blood Pressure 138/82 146/82 H 131/62 Pulse Oximetry 95 93 Oxygen Flow Rate 0 0 Oxygen Delivery Method Room Air Oxygen Flow Rate 0 Narrative Exam Narrative: GEN: no acute distress HEENT: moist mucous membranes, PERRL NECK: trachea midline, no JVD CV: regular rate and rhythm, no murmurs PULM: clear bilaterally, no wheezes, rhonchi, rales ABD: soft, nontender, nondistended, no organomegaly EXT: warm and well perfused with no edema NEURO: awake, alert, moderate expressive aphasia, cranial nerves 2-12 intact, no sensory deficit, notable facial droop, normal upper and lower extremity strength Objective Labs Result Diagrams: 07/22/22 05:19 07/22/22 05:19 Labs: Laboratory Results - last 24 hr 07/22/22 07/22/22 07/22/22 05:19 05:19 05:19 WBC 5.6 RBC 4.37 L Hgb 13.7 Hct 40.7 L MCV 93.2 MCH 31.4 MCHC 33.7 RDW 12.8 Plt Count 126 L Neut % (Auto) 75.4 H Lymph % (Auto) 13.9 L Candler % (Auto) 8.5 Eos % (Auto) 1.6 L Baso % (Auto) 0.6 Neut # (Auto) 4200 Lymph # (Auto) 800 L Candler # (Auto) 500 Eos # (Auto) 100 Baso # (Auto) 0 Sodium 138 Potassium 3.7 Chloride 102 Carbon Dioxide 27 BUN 18 Creatinine 0.87 Estimated GFR > 60 BUN/Creatinine Ratio 20.7 Glucose 120 H Hemoglobin A1c 5.5 Calcium 8.9 Triglycerides 54 Cholesterol 173 LDL Cholesterol, Calc 115 H HDL Cholesterol 47 PFSH Social History household members: spouse Smoking Status: Never smoker alcohol intake: current Assessment & Plan Assessment & Plan narrative: 1.Acute CVA with history of CVA -noted to have acute onset of symptoms nearly 24 hours prior to arrival, well outside window for TPA -CT head and CTA head/neck showed encephalomalacia from old stroke, and no large vessel occlusion -not on aspirin or statin at home as had stopped aspirin 2 weeks prior for procedure -NIH in ED was 8 -NIH scores q4h -start aspirin and statin here -allow for permissive hypertension -ordered MRI to confirm stroke which was in basal ganglia -tele to monitor for afib -ECHO was unremarkable -check lipids, a1c to eval for modifiable risk factors -PT/OT, speech eval 2. Hypertension -permissive hypertension as above -may need new medications for BP on dc 3. UTI -UA noted to have WBCs and bacteria, consistent with UTI -urine culture pending -started ceftriaxone day 1 07/21 4. Thrombocytopenia -mild -possibly chronic -trend daily CODE: Full Proxy: Kristen Barnes, I have utilized all available resources to reconcile the patient's home medications Time Spent With Patient Critical Care time: I spent a total of [] minutes of critical care time on this patient's care today; this time is exclusive of procedural time. Quality VTE Deep Vein Thrombosis/Pulmonary Embolism Present on Admission: No
--- NOTE | 2022-07-22 11:35 | PT.IPTN ---
Current Diagnoses Cerebral infarction, unspecified (07/21/22) Physical Therapy Treatment Note M2 PT-IP Current Condition Start: 07/21/22 13:03 Freq: NEEDED Status: Active Protocol: Document 07/22/22 11:03 SP (Rec: 07/22/22 15:10 SP [id number]) Physical Therapy Current Condition Current Condition Evaluation Date 07/21/22 Treatment Diagnosis CVA--L basal ganglia Onset Date 07/20/22 M3 PT-IP Subjective Start: 07/21/22 13:03 Freq: NEEDED Status: Active Protocol: Document 07/22/22 11:03 SP (Rec: 07/22/22 15:10 SP [id number]) Subjective Physical Therapy Visit Type Type Treatment Note Visit Start Time 11:03 Visit Stop Time 11:35 Total Visit Minutes 32 Notes GILBERTO Abbasi provided safety CGA of 2nd person and added education as needed to pt supporting PRODUCT TECHNICIAN Rebeca while being given direct supervistion and guidance needed throughout tx. in room when arrived. She stated has provided assist to pt at home and well aware of what needed. She and pt Vitals seated in chair pre mobility: BP 146/82 Number of PRODUCT TECHNICIAN Visits 1 Physical Therapy Visit Comments Patient Comments Pt agreeable to working with therapy. Patient Goals Plan to go to Acute Rehab to progress mobility with skilled services intensive 3hrs/ day to return to PLOF in least amount time needed. M4 PT-IP Mobility and Gait Start: 07/21/22 13:03 Freq: NEEDED Status: Active Protocol: Document 07/22/22 11:03 SP (Rec: 07/22/22 15:10 SP [id number]) PT-Bed Mobility Assessment Rolling Type of Rolling Log Rolling,Bilateral Level of Assist Standby Assistance Supine to Sit Supine to Sit Standby Assistance,Bedrails Sit to Supine Sit to Supine Standby Assistance,Bedrails Scooting Scooting to Edge of Bed Standby Assistance Scooting Up and Down in Bed Standby Assistance PT-Transfer Assessment Sit to and From Stand Sit to and from Stand Contact Guard Assistance Equipment Transfer Assistive Device Gait Belt,Front Wheeled Walker Transfers Transfer Destination Bed,Chair,Toilet Transfer Technique pt ambulated w/ FWW CGA/close SBA, no AD Min A Transfer Ability Level of Assist Standby Assistance,Contact Guard Assistance,1 Person Assistance,Use of Upper Extremities Comments Mobility Comments Pt was up in bathroom when arrived, in room seated on room bench, pt stated didn' t notify nursing. PRODUCT TECHNICIAN donned gait belt and provided CGA, pt gait bathroom to sink, noted slight trunk sways but no LOB, good balance at sink. Pt returned to chair, cues for staying within FWW, pivot fully repositioning FWW, centering front chair then hand placement for slow descent chair. Education for safety use hands for transfers to decrease noted almost fall into chair, decreased strength. Pt stated can walk around room without AD, Assessment CGA- Min A support across room and back noted trunk sways reaching for end bed for self support and during pivot turn near door L leg gave way and LOB into wall pt contact wall and Min A for recovery. PRODUCT TECHNICIAN provided FWW for increased self trunk support. Pt improved stability , able complete ascend/descend 1 PF step has to get into home assimulation, CG- Min A with max cues for sequencing FWW safely repositioning on/ off step, Mod A BUE support on FWW due to RLE weakness and unstable. Pt returned to R EOB , cues for reaching back to sit on bed complete sit<> supine and scoot up in bed SBA - Mod I. Pt completed transfer bed>chair w/ FWW CGA with noted little trunk sway but no LOB. Static standing assessment :NBOS Head turns trunk sways but stable and EC up to 10 sec before LOB to R Min A recover, stagger stance 6 between BLEs head turns sways LOB to R during R head turn, unable to perform EC. Pt returned to chair. Pt states his balance isn't his normal and hoping to go to acute rehab to improve before going home. PT will continue to assess progress. Pt had chair alarm donned, call light and all needs in reach before left . in room. Gait Assessment Gait Gait Assistance Required: Contact Guard Assist,Minimum Assistance,1 Person Assist Distance (Feet) 30 Able to Maintain Weight Bearing Status Yes During Gait Assistive Devices Assistive Device Gait Belt,Front Wheeled Walker Gait Deviations General Gait Pattern Antalgic,Decreased Stride Length,Decreased Feet Clearance,Flexed Trunk,Lateral Trunk Lean Factors Limiting Gait Function Factors Limiting Gait Function Decreased Activity Tolerance, Decreased Strength,Poor Balance,Poor Safety Awareness Comments Gait Comments Cues for quad facilitation during RLE WB prevent buckling , support trunk gait with no AD Min A, SBA-CGA during gait with FWW, safety cues for proper positioning with FWW to pt. Stair Climbing Assessment Evaluation Level of Assist On Stairs Contact Guard Assistance, Minimal Assistance,1 Person Assistance Devices Stair Climbing Assistive Devices Front Wheel Walker Technique/Endurance Stair Climbing Direction Ascend and Descend Stair Climbing Technique Step to Step Number of Steps Climbed 1 Stair Climbing Set # Repetitions (reps) 1 Comments Stair Climbing Comments 1 PF step, max cues for sequencing and ascend LLE, lead RLE descending, CG- Min A for safety trunk stability and FWW safety positioning to assimulate home enterance. PT-Balance Assessment Sitting Balance and Reactions Static Sitting Balance Ability Normal Dynamic Sitting Balance Ability Good Standing Balance and Reactions Static Standing Balance Ability Fair Dynamic Standing Balance Ability Poor Device Used no AD, Dynamic Fair with FWW Comments Other Balance Tests/Deviations/Treatment see balance assessment details : in mobility. M5 PT-IP Objective Assessments Start: 07/21/22 13:03 Freq: NEEDED Status: Active Protocol: Document 07/21/22 13:03 AMB (Rec: 07/21/22 13:46 AMB [id number]) Orientation Orientation/Cognition Language Function Ability Garbled Speech,Word Finding Difficulties Safety Awareness Decreased Safety Awareness Gross Range of Motion Upper Extremity ROM Assessment Within Functional Limits Lower Extremity ROM Assessment Within Functional Limits Strength Upper Extremity Strength Assessment Right Impaired Lower Extremity Strength Assessment Right Impaired Comments Strength Comments At least 4/5 strength through ankle, knee, hip, good scene and lighting design lecturer strength. Sensation Assessment Sensation Gross Sensation Right UE Impaired,Right LE Impaired Sensation Description Tingling Muscle Tone Muscle Tone WNL Yes M6 PT-IP Treatment Start: 07/21/22 13:03 Freq: NEEDED Status: Active Protocol: Document 07/22/22 11:03 SP (Rec: 07/22/22 15:10 SP [id number]) Physical Therapy Treatment Education Education Provided Safety M7 PT-IP Assessment and Plan Start: 07/21/22 13:03 Freq: NEEDED Status: Active Protocol: Document 07/22/22 11:03 SP (Rec: 07/22/22 15:10 SP [id number]) PT Summary Assessment and Plan Potential Rehabilitation Potential Good Status of Condition at Evaluation Evolving Summary Impairments Pain,Strength,Balance, Transfers,Gait Progress Towards Goals Progressing Toward Goals,Slow Progress due to Activity Tolerance Assessment Summary Pt demonstrates decrease safety, slurred speech and challenge word finding at times. He requires intermittent safety education during mobility use of FWW and proper positioning CG- close SBA, he required support for trunk Min A without AD due to RLE unsteady LOB L into wall during pivot. Pt would benefit from continued acute skilled rehab to progress to PLOF I with no AD. Goals Bed Mobility Goal Independent Transfer Goal Standby Assistance Gait Goal Standby Assistance Gait Distance 500 Days to Meet Goals 5 Frequency of Treatment Frequency Of Treatment Once a Day Treatment Plan Physical Therapy Treatment Plan Bed Mobility Training,Transfer Training,Gait Training, Balance Retraining, Neuromuscular Re-ed Other Recommendations and Next Treatment transfers, balance, further Focus distance gait with LRAD. Recommendations To Nursing Amount of Assist Needed 1 Person Assist Discharge Recommendations PT Discharge Recommendations Home with 14/04 Assist Available,Home Health,Acute Rehab,SNF vs Acute Rehab Equipment Needed for Home Before will need FWW if unable to go Discharge to SNF. Transportation Needs at Discharge Private Vehicle,Wheelchair/ Cabulance
[2022-07-22] MEDS: cefTRIAXone 1,000 MG in SODIUM CHLORIDE 0.9% 100 ML 200 MG IV (12:00)
--- NOTE | 2022-07-22 13:07 | ST.IPIE ---
Visit Care Team Role Provider Type Gonzalez Orellana MD Family Provider Physician Primary Care Provider Specialty: Internal Medicine Address: [address] [place] [address], [address] Email: [email or web address] Mehdi Bauer DO Emergency Provider Physician Referring Provider Specialty: Emergency Medicine Address: [address] [place] [address], [address] Email: [email or web address] Ish Ricardo MD Admit Provider Physician Attending Provider Specialty: Hospitalist Address: [address] [place] [address], [address] Fax: Email: [email or web address] [email or web address] Cerebral infarction, unspecified (07/21/22) ST IP Initial Evaluation Report COMMERCIAL DRIVER'S 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 Barnes is a 72M with PMH CVA, and recent COVID booster who presents with dysarthria and aphasia. He notes he had a stroke over a decade ago. He essentially had no persistent deficits. Yesterday his noted that he had difficulty with speech, she thought it was possible a reaction to his COVID booster . He went for a nap. His symptoms did not improve. He did have imbalance. He was not having any sensory deficits. No upper or lower extremity weakness. CT head and CTA angio head and neck showed no acute process. EKG showed sinus rhythm with no evidence of ischemia. Daily use of marijuana. Subjective Observations The pt was reclined in bed when COMMERCIAL DRIVER'S LICENSE DRIVER arrived. Pt had wet/ gurgly vocal quality, was observed to clear his throat, and was coughing. He was repositioned to upright position for assessment. Reported by Patient Other Symptoms Coughing Current Diet Regular,Thin liquids Objective Assessment Mental Status Alert,Responsive,Cooperative Oral Integrity WFL Dentition Within normal limits,Dentures or partials present,Upper dentures/partials,Lower dentures/partials Lip Function Within normal limits Observation of Lips at Rest Symmetrical Pucker Within normal limits Lip Retraction Within normal limits Alternating Pucker/Lip Retraction Within normal limits Tongue Function Within normal limits Observations of Tongue at Rest Within normal limits Tongue Protrusion Reduced range of motion Tongue Retraction Within normal limits Tongue Lateralization Within normal limits Jaw Function Within normal limits Observations of Jaw at Rest Within normal limits Jaw Opening Within normal limits Jaw Closing Within normal limits Hard/Soft Palate Function Within normal limits Observations of Hard/Soft Palate Within normal limits Comment Completed OME with pt. Structures were symmetrical at rest and in motion. Reduced ROM observed in tongue protrusion and pt observed to have a larger tongue with fissures. Dentition was present and WNL, pt stated he bought them. Lip and jaw strength and ROM was WNL. Pt presents with mumbled speech and wet/gurgly vocal quality, which negatively impacted intelligibility. Pt reported he has always mumbled like this and stated he did not have difficulty with his speech during or since the event. Food and Liquid Trials Position During Assessment Upright (90 degrees),In bed Liquids Trialed Thin Oral Impairment Within normal limits Oral Phase Comments Pt exhibited no anterior loss of bolus. No residue observed following swallow. Did not complete solid trials so mastication was not evaluated, though pt reported no difficulty chewing while eating. Pharyngeal Impairment Within normal limits Pharyngeal Phase Comments Pt exhibited wet/gurgly vocal quality prior to PO trials. Following drink of thin water through open cup, wet/gurgly vocal quality was resolved and no overt signs or symptoms of aspiration were observed. NSG reported pt's cough and wet/ gurgly vocal quality appeared following morning meal, though stated there was no coughing or choking during meal. Coughing and wet/gurgly vocal quality likely unrelated to swallow impairment, symptoms are more consistent with reflux. Findings Swallowing Function Within normal limits Severity of Swallow Impairment Within normal limits Comment Pt presents with swallowing WNL and mildly impaired intelligibility secondary to mumbling, which pt reported is consistent with baseline. Recommend monitoring speech and swallowing and providing oral motor exercises as needed . Pt's report of symptoms did not match documented symptoms, pt answered questions with off-topic or general answers, and exhibited some confusion in response to some questions. Recommend completing cognitive assessment. Impact on Safety and Functioning No limitations Recommendations Instrumental Assessment No Recommended Solids Regular Recommended Liquids Thin Safety Precautions/Swallowing Feed only when alert,Reduce Recommendations distractions,Remain upright ( 90 degrees) during all oral intake,Upright position at least 30 minutes after meals, Small bites and sips when eating,Slow rate; swallow between bites Medication Recommendations As Tolerated Education Patient/Caregiver Education Described results of evaluation,Patient expressed understanding of evaluation, Patient expressed agreement with goals & treatment plans, Patient requires further education/training Goals Short-term Goals 1. Complete SLUMS assessment to inform plan of care. 2. Monitor speech to determine if pt would benefit from oral motor exercises.
[2022-07-22] MEDS: BISACODYL 10 MG SUPP PR (14:26)
[2022-07-22] MEDS: ATORVASTATIN 20 MG TABLET 40 MG PO (21:25)
[2022-07-23] VITALS (8 sets, daily range): BP systolic 147–163; BP diastolic 87–93; PULSE 71–81; RESP 18–20; TEMP 36.4–37; O2SAT 94–97
[2022-07-23] MEDS: ACETAMINOPHEN 325 MG TABLET 650 MG PO ×3 (01:59→20:58)
--- NOTE | 2022-07-23 02:07 | PC.NURSE ---
Patient requesting acetaminophen for headache. Patient HOB elevated to 90 degrees and patient encouraged to tuck chin with swallow. Patient does not follow this swallow cue and coughing with swallowing. Primary RN Terri notified of analgesia administration and also coughing during swollow.
[2022-07-23 06:09] LABS: Hematocrit 42.6 % (41-53); Hemoglobin 14.3 g/dL (13.5-17.5); Mean Corpuscular HGB Conc 33.6 % (30-36); Mean Corpuscular Hemoglobin 31.4 PG (26-34); Mean Corpuscular Volume 93.6 fL (80-100); Platelet Count 137 X10^3/uL (150-400); Red Blood Cell Count 4.55 X10^6/uL (4.5-5.9); Red Cell Distribution Width 12.9 % (11.6-14.8); White Blood Cell Count 6.2 X10^3/uL (4.5-11.0)
[2022-07-23 06:19] LABS: Blood Urea Nitrogen 20 mg/dL (9-20); Calcium 9.2 mg/dL (8.4-10.2); Carbon Dioxide 28 mmol/L (22-32); Chloride 103 mmol/L (98-107); Estimated Glomerular Filt Rate > 60 mL/min (>60); Glucose 119 mg/dL (80-110); HEMOLYSIS < 15 (0-50); Potassium 3.9 mmol/L (3.4-5.1); Sodium 139 mmol/L (137-145)
--- NOTE | 2022-07-23 07:48 | CM.DPC ---
Addendum entered by Whit Parada R.N. 07/23/22 11:14: Patient was denied by [facility] for acute inpatient rehab as well as denied for chcf facilities. Spouse, Sarahi, appealed, but is aware that this could take up to 72 hours. Patient and spouse are ok with home health. Spouse is worried that he may fall when he goes home today, since she has to leave to go shopping. Dr. Oropeza stated that the can keep patient another day, he can work further with P.T, and patient will go home tomorrow with home health. Brought in Medicare Choice List, patient and spouse have no preference upon agencies. Agency listed on calendar for this week is [facility]. Gave her the [facility]chure, and contacted Mike at [facility] and let him know about referral, and likely discharge tomorrow. Patient declined bath aide, but will have RN, P.T, O.T, and speech. Original Note: DCP Cont: Called Vandana at [facility] to inquire if they have a bed today. She indicated that she will call back after she finds out about her discharges today. Called Kathi Oneal [facility] [employer], and let her know that patient is most likely ready for discharge today to acute inpatient rehab. [facility] also has beds in case [facility] can't accomidate for today. Kathi Oneal called back and indicated that the P.T. notes stated home versus skilled. Let her know O.T. had recommended inpatient acute rehab. She stated that she will have provider review, but may deny. P: DCP to continue to follow. If patient does not get authorized for inpatient acute rehab, doubtful that patient will want to go to chcf facility, per conversation yesterday, and may end up going home with home health. Kathi Oneal will call back. Whit Parada RN/Link Trainer [employer]ic
[2022-07-23] MEDS: DOCUSATE 100 MG CAPSULE PO ×2 (09:20→20:58)
[2022-07-23] MEDS: ASPIRIN EC 81 MG TABLET PO (09:20)
[2022-07-23] MEDS: ENOXAPARIN 40 MG/0.4 ML SYRINGE SUBCUT ×2 (09:20→10:04)
[2022-07-23] MEDS: SENNOSIDES 8.6 MG TABLET PO ×2 (09:22→20:58)
[2022-07-23] MEDS: SODIUM CHLORIDE 0.9% FLUSH 10 ML IV ×2 (09:22→20:59)
[2022-07-23] MEDS: polyethylene glycoL 3350 17 GM POWD.PACK PO (09:22)
[2022-07-23] MEDS: cefTRIAXone 1,000 MG in SODIUM CHLORIDE 0.9% 100 ML 200 MG IV (10:05)
--- NOTE | 2022-07-23 11:23 | ST.IPIE ---
Visit Care Team Role Provider Type Gonzalez Orellana MD Family Provider Physician Primary Care Provider Specialty: Internal Medicine Address: [address] [place] [address], [address] Email: [email or web address] Mehdi Bauer DO Emergency Provider Physician Referring Provider Specialty: Emergency Medicine Address: [address] [place] [address], [address] Email: [email or web address] Ish Ricardo MD Admit Provider Physician Attending Provider Specialty: Hospitalist Address: [address] [place] [address], [address] Fax: Email: [email or web address] [email or web address] Cerebral infarction, unspecified (07/21/22) ST IP Initial Evaluation Report MANAGER RESPIRATORY CARE Adult Cognitive Linguistic Eval Start: 07/23/22 11:09 Freq: Status: Active Protocol: Document 07/23/22 11:09 AZALIA (Rec: 07/23/22 11:23 ZS [id number]) Adult Cognitive Linguistic Evaluation Session Time Visit Start Time 09:00 Visit Stop Time 09:30 Total Visit Minutes 30 Setting Assessment Location Acute Care Visit Type Note Type Re-evaluation Next Note Type Next Note Type Treatment Note Patient Information Identification Type Name Education Level HS diploma Subjective Patient Report Pt was seated upright in chair with at bedside when MANAGER RESPIRATORY CARE arrived. stated speech is still not at baseline. Pt agreed to participate in cognitive screening and therapy activities. Formal Assessment Standardized Test/Screener Type [facility] Mental Status ([facility]) Administration Complete Results Results of the UMS placed Danyel's score at 14/30, indicating moderately-severe impairment in cognitive skills . Significant difficulty observed in number manipulation, as indicated by difficulty with mental math, sequencing numbers for clock drawing, and mental manipulation of number sequences. Additionally, pt exhibited reduced attention and executive function skills, observed in generative naming task (e.g., patient began naming other items and required prompting to return to task), listening to story ( e.g., pt missed character's name and then several details of the story as he was fixated on name), and completion of clock drawing task. Attention and executive function deficit may be related to difficulty in following prompts for swallow safety. Findings/Results Cognitive Function Moderately-severely impaired Findings Results of the SLUMS placed Danyel's score at 14/30, indicating moderately-severe impairment in cognitive skills . Significant difficulty observed in number manipulation, as indicated by difficulty with mental math, sequencing numbers for clock drawing, and mental manipulation of number sequences. Additionally, pt exhibited reduced attention and executive function skills, observed in generative naming task (e.g., patient began naming other items and required prompting to return to task), listening to story ( e.g., pt missed character's name and then several details of the story as he was fixated on name), and completion of clock drawing task. Attention and executive function deficit may be related to difficulty in following prompts for swallow safety. Speech continued to be difficult to understand, consistent with previous session. Provided pt with oral motor exercises (i.e ., tongue stretch in all directions, open/close jaw rapidly, DDK task) to increase strength and ROM of articulators for improved intelligibility in speech. Pt expressed understanding and demonstrated competency with all provided exercises. Cognitive Communication Deficits Self-awareness of Cognitive- No awareness Communication Deficits Prognosis Prognosis Fair Based on Comorbidities,Duration of symptoms/severity,Time since onset Plan of Care Speech-Language Treatment Yes Patient/Caregiver Education Described results of evaluation,Patient expressed understanding of evaluation, Patient expressed agreement with goals and treatment plans ,Family/caregivers expressed understanding of evaluation, Family/caregivers expressed agreement with goals and treatment plan,Patient requires further education/ training,Family/caregivers require further education/ training Short Term Goals 1. The pt will perform exercises to increase strength, coordination, and ROM of speech and swallow musculature independently to reduce risk of aspiration, increase comfort with oral intake, and improve intelligibility. 2. The pt will perform safe swallow strategies with oral intake independently to reduce risk of aspiration. 3. The pt will participate in education regarding cognitive impairment and compensatory strategies to improve cognitive function. Shelter Goals The pt will demonstrate 100% intelligibility when communicating wants and needs, especially as it pertains to medical decision making and emergency situations. Discharge Recommendations Inpatient rehab facility MANAGER RESPIRATORY CARE Clinical Swallow Evaluation Start: 07/22/22 10:05 Freq: Status: Active Protocol: Document 07/22/22 10:05 AZALIA (Rec: 07/22/22 10:20 AZALIA [id number]) Clinical Swallow Evaluation Session Time Visit Start Time 09:40 Visit Stop Time 10:00 Total Visit Minutes 20 Visit Information Visit Number Initial Evaluation Setting Assessment Location Acute Care Visit Type Note Type Initial evaluation Next Note Type Next Note Type Treatment Note Patient Information Identification Type Name History Per H&P: Mr. Barnes is a 72M with PMH CVA, and recent COVID booster who presents with dysarthria and aphasia. He notes he had a stroke over a decade ago. He essentially had no persistent deficits. Yesterday his noted that he had difficulty with speech, she thought it was possible a reaction to his COVID booster . He went for a nap. His symptoms did not improve. He did have imbalance. He was not having any sensory deficits. No upper or lower extremity weakness. CT head and CTA angio head and neck showed no acute process. EKG showed sinus rhythm with no evidence of ischemia. Daily use of marijuana. Subjective Observations The pt was reclined in bed when MANAGER RESPIRATORY CARE arrived. Pt had wet/ gurgly vocal quality, was observed to clear his throat, and was coughing. He was repositioned to upright position for assessment. Reported by Patient Other Symptoms Coughing Current Diet Regular,Thin liquids Objective Assessment Mental Status Alert,Responsive,Cooperative Oral Integrity WFL Dentition Within normal limits,Dentures or partials present,Upper dentures/partials,Lower dentures/partials Lip Function Within normal limits Observation of Lips at Rest Symmetrical Pucker Within normal limits Lip Retraction Within normal limits Alternating Pucker/Lip Retraction Within normal limits Tongue Function Within normal limits Observations of Tongue at Rest Within normal limits Tongue Protrusion Reduced range of motion Tongue Retraction Within normal limits Tongue Lateralization Within normal limits Jaw Function Within normal limits Observations of Jaw at Rest Within normal limits Jaw Opening Within normal limits Jaw Closing Within normal limits Hard/Soft Palate Function Within normal limits Observations of Hard/Soft Palate Within normal limits Comment Completed OME with pt. Structures were symmetrical at rest and in motion. Reduced ROM observed in tongue protrusion and pt observed to have a larger tongue with fissures. Dentition was present and WNL, pt stated he bought them. Lip and jaw strength and ROM was WNL. Pt presents with mumbled speech and wet/gurgly vocal quality, which negatively impacted intelligibility. Pt reported he has always mumbled like this and stated he did not have difficulty with his speech during or since the event. Food and Liquid Trials Position During Assessment Upright (90 degrees),In bed Liquids Trialed Thin Oral Impairment Within normal limits Oral Phase Comments Pt exhibited no anterior loss of bolus. No residue observed following swallow. Did not complete solid trials so mastication was not evaluated, though pt reported no difficulty chewing while eating. Pharyngeal Impairment Within normal limits Pharyngeal Phase Comments Pt exhibited wet/gurgly vocal quality prior to PO trials. Following drink of thin water through open cup, wet/gurgly vocal quality was resolved and no overt signs or symptoms of aspiration were observed. NSG reported pt's cough and wet/ gurgly vocal quality appeared following morning meal, though stated there was no coughing or choking during meal. Coughing and wet/gurgly vocal quality likely unrelated to swallow impairment, symptoms are more consistent with reflux. Findings Swallowing Function Within normal limits Severity of Swallow Impairment Within normal limits Comment Pt presents with swallowing WNL and mildly impaired intelligibility secondary to mumbling, which pt reported is consistent with baseline. Recommend monitoring speech and swallowing and providing oral motor exercises as needed . Pt's report of symptoms did not match documented symptoms, pt answered questions with off-topic or general answers, and exhibited some confusion in response to some questions. Recommend completing cognitive assessment. Impact on Safety and Functioning No limitations Recommendations Instrumental Assessment No Recommended Solids Regular Recommended Liquids Thin Safety Precautions/Swallowing Feed only when alert,Reduce Recommendations distractions,Remain upright ( 90 degrees) during all oral intake,Upright position at least 30 minutes after meals, Small bites and sips when eating,Slow rate; swallow between bites Medication Recommendations As Tolerated Education Patient/Caregiver Education Described results of evaluation,Patient expressed understanding of evaluation, Patient expressed agreement with goals & treatment plans, Patient requires further education/training Goals Short-term Goals 1. Complete SLUMS assessment to inform plan of care. 2. Monitor speech to determine if pt would benefit from oral motor exercises.
--- NOTE | 2022-07-23 11:34 | PT.IPTN ---
Current Diagnoses Cerebral infarction, unspecified (07/21/22) Physical Therapy Treatment Note M2 PT-IP Current Condition Start: 07/21/22 13:03 Freq: NEEDED Status: Active Protocol: Document 07/22/22 11:03 SP (Rec: 07/22/22 15:10 SP [id number]) Physical Therapy Current Condition Current Condition Evaluation Date 07/21/22 Treatment Diagnosis CVA--L basal ganglia Onset Date 07/20/22 M3 PT-IP Subjective Start: 07/21/22 13:03 Freq: NEEDED Status: Active Protocol: Document 07/23/22 11:15 KS (Rec: 07/23/22 12:15 KS [id number]) Subjective Physical Therapy Visit Type Type Treatment Note Visit Start Time 11:15 Visit Stop Time 11:34 Total Visit Minutes 19 Notes Pts present during treatment. Number of LOSS PREVENTION INVESTIGATOR Visits 2 Physical Therapy Visit Comments Patient Comments Pt agreeable to working with therapy. M4 PT-IP Mobility and Gait Start: 07/21/22 13:03 Freq: NEEDED Status: Active Protocol: Document 07/23/22 11:15 KS (Rec: 07/23/22 12:15 KS [id number]) PT-Transfer Assessment Sit to and From Stand Sit to and from Stand Contact Guard Assistance,1 Person Assistance,Use of Upper Extremities Equipment Transfer Assistive Device Gait Belt,Front Wheeled Walker Transfers Transfer Destination Chair Transfer Technique Ambulated w/ FWW Transfer Ability Level of Assist Standby Assistance,Contact Guard Assistance,1 Person Assistance,Use of Upper Extremities Comments Mobility Comments Pt in chair upon arrival from therapy and present in room. Pt somewhat impulsive, needing safety cues. CGA for sit<>stand w/ FWW. Pt ambulated ~100 ft w/ FWW CGA. He is slightly unsteady overall but had no overt LOB. Cues for safety and FWW use. Able to complete bilateral anklr pumps. Left in chair w/ all needs in reach. Gait Assessment Gait Gait Assistance Required: Contact Guard Assist,1 Person Assist Distance (Feet) 100 Able to Maintain Weight Bearing Status Yes During Gait Assistive Devices Assistive Device Gait Belt,Front Wheeled Walker Gait Deviations General Gait Pattern Antalgic,Decreased Stride Length,Decreased Feet Clearance,Flexed Trunk,Lateral Trunk Lean Factors Limiting Gait Function Factors Limiting Gait Function Decreased Activity Tolerance, Decreased Strength,Poor Balance,Poor Safety Awareness Comments Gait Comments Please refer to mobility section for details. PT-Balance Assessment Sitting Balance and Reactions Static Sitting Balance Ability Normal Dynamic Sitting Balance Ability Good Standing Balance and Reactions Static Standing Balance Ability Fair Dynamic Standing Balance Ability Fair Device Used FWW Comments Other Balance Tests/Deviations/Treatment see balance assessment details : in mobility. M5 PT-IP Objective Assessments Start: 07/21/22 13:03 Freq: NEEDED Status: Active Protocol: Document 07/21/22 13:03 AMB (Rec: 07/21/22 13:46 AMB [id number]) Orientation Orientation/Cognition Language Function Ability Garbled Speech,Word Finding Difficulties Safety Awareness Decreased Safety Awareness Gross Range of Motion Upper Extremity ROM Assessment Within Functional Limits Lower Extremity ROM Assessment Within Functional Limits Strength Upper Extremity Strength Assessment Right Impaired Lower Extremity Strength Assessment Right Impaired Comments Strength Comments At least 4/5 strength through ankle, knee, hip, good service specialist strength. Sensation Assessment Sensation Gross Sensation Right UE Impaired,Right LE Impaired Sensation Description Tingling Muscle Tone Muscle Tone WNL Yes M6 PT-IP Treatment Start: 07/21/22 13:03 Freq: NEEDED Status: Active Protocol: Document 07/23/22 11:15 KS (Rec: 07/23/22 12:15 KS [id number]) Physical Therapy Treatment Exercises Exercises Ankle Pumps Education Education Provided Safety M7 PT-IP Assessment and Plan Start: 07/21/22 13:03 Freq: NEEDED Status: Active Protocol: Document 07/23/22 11:15 KS (Rec: 07/23/22 12:15 KS [id number]) PT Summary Assessment and Plan Potential Rehabilitation Potential Good Summary Impairments Pain,Strength,Balance, Transfers,Gait Progress Towards Goals Progressing Toward Goals,Slow Progress due to Activity Tolerance Assessment Summary Pt continues to present w/ decreased safety awareness and slight unsteadiness when ambulating w/ FWW. Improved tolerance, able to ambulate 100 ft. confirms they will acquire FWW for home use. Pt wanting acute rehab but was not accepted and may need to go home w/ HH. Still recommend acute rehab to maximize rehab potential. Goals Bed Mobility Goal Independent Transfer Goal Standby Assistance Gait Goal Standby Assistance Gait Distance 500 Days to Meet Goals 5 Frequency of Treatment Frequency Of Treatment Once a Day Treatment Plan Physical Therapy Treatment Plan Bed Mobility Training,Transfer Training,Gait Training, Balance Retraining, Neuromuscular Re-ed Other Recommendations and Next Treatment transfers, balance, further Focus distance gait with LRAD. Recommendations To Nursing Amount of Assist Needed 1 Person Assist Discharge Recommendations PT Discharge Recommendations Home with 14/04 Assist Available,Home Health,Acute Rehab Equipment Needed for Home Before FWW - check w/ to see if Discharge she has acquired. Transportation Needs at Discharge Private Vehicle,Wheelchair/ Cabulance
--- NOTE | 2022-07-23 13:38 | P.PN_ITS ---
Subjective Subjective Date Patient Seen: 07/22/22 Interval history: He continues to have difficulty with speech, maybe this is even a bit worse today, and continues to have coordination issues with ambulation. He feels about the same as yesterday with maybe minimal improvement. His insurance did not authorize acute rehab today. plans on appealing. Exam Vital Signs (past 8 hours): - 07/23/22 07:51 07/23/22 11:00 Temperature 97.5 F L 98.0 F Pulse Rate 76 80 Respiratory Rate 18 20 Blood Pressure 160/92 H 155/93 H Pulse Oximetry 96 97 Oxygen Flow Rate 0 0 Oxygen Delivery Method Room Air Oxygen Flow Rate 0 Narrative Exam Narrative: GEN: no acute distress HEENT: moist mucous membranes, PERRL NECK: trachea midline, no JVD CV: regular rate and rhythm, no murmurs PULM: clear bilaterally, no wheezes, rhonchi, rales ABD: soft, nontender, nondistended, no organomegaly EXT: warm and well perfused with no edema NEURO: awake, alert, expressive aphasia with slow speech and slurred words though is understandable the majority of the time, cranial nerves 2-12 intact, no sensory deficit, normal upper and lower extremity strength Objective Labs Result Diagrams: 07/23/22 05:48 07/23/22 05:48 Labs: Laboratory Results - last 24 hr 07/23/22 07/23/22 05:48 05:48 WBC 6.2 RBC 4.55 Hgb 14.3 Hct 42.6 MCV 93.6 MCH 31.4 MCHC 33.6 RDW 12.9 Plt Count 137 L Sodium 139 Potassium 3.9 Chloride 103 Carbon Dioxide 28 BUN 20 Creatinine 0.87 Estimated GFR > 60 BUN/Creatinine Ratio 23.0 H Glucose 119 H Calcium 9.2 PFSH Social History household members: spouse Smoking Status: Never smoker alcohol intake: current Assessment & Plan Assessment & Plan narrative: 1.Acute CVA with history of CVA -noted to have acute onset of symptoms nearly 24 hours prior to arrival, well outside window for TPA -CT head and CTA head/neck showed encephalomalacia from old stroke, and no large vessel occlusion -not on aspirin or statin at home as had stopped aspirin 2 weeks prior for procedure -NIH in ED was 8 -started aspirin and statin here. No plavix given NIH >5. -allowed for permissive hypertension, will work on continued control and restart home beta dayanara. -ordered MRI to confirm stroke which was in basal ganglia -tele to monitor for afib -ECHO was unremarkable -continues to have speech and coordination difficulties today, continue physical and occupational therapies. Attempted acute rehab, not authorized by insurance. -plan for home with home health, likely tomorrow. 2. Hypertension -permissive hypertension as above -restart home beta dayanara today. 3. UTI -UA noted to have WBCs and bacteria, consistent with UTI -urine culture pending -started ceftriaxone day 1 07/21, treat for 5 days total can switch to orals at discharge. 4. Thrombocytopenia -mild -possibly chronic, outpatient follow up with PCP recommended. CODE: Full Proxy: Kristen Barnes, I have utilized all available resources to reconcile the patient's home medic ations Time Spent With Patient Critical Care time: I spent a total of [] minutes of critical care time on this patient's care today; this time is exclusive of procedural time. Quality VTE Deep Vein Thrombosis/Pulmonary Embolism Present on Admission: No MIPS - Admit I confirm the patient?s Advance Care Plan is present, Code status is documented, Surrogate decision maker is in patient?s record [If Yes, STOP here]: Yes
--- NOTE | 2022-07-23 13:44 | OT.IP.TRT ---
Current Diagnoses Cerebral infarction, unspecified (07/21/22) Occupational Therapy Treatment Note M2 OT-IP Current Condition Start: 07/22/22 10:47 Freq: Status: Active Protocol: Document 07/22/22 10:47 [facility] (Rec: 07/22/22 11:03 [facility]GR [id number]) Occupational Therapy Current Condition Current Condition Evaluation Date 07/22/22 Treatment Diagnosis L CVA with dysarthria, aphasia , UTi, HTN, R weakness Diagnosis Onset Date 07/21/22 M3 OT- IP Subjective and Pain Start: 07/22/22 10:47 Freq: Status: Active Protocol: Document 07/23/22 15:14 [facility] (Rec: 07/23/22 15:24 [facility] [id number]) OT- Subjective Occupational Therapy Visit Type Type Treatment Note Visit Start Time 13:15 Visit Stop Time 13:44 Total Visit Minutes 29 Occupational Therapy Visit Comments Patient Comments Pt wanting to take a shower. Patient/Caregiver Goals To go home. OT Pain Assessment Pain When Pain Assessed At Rest Pain Present Pain Present Denied Pain M4 OT- IP ADL's Start: 07/22/22 10:47 Freq: Status: Active Protocol: Document 07/23/22 15:14 [facility] (Rec: 07/23/22 15:24 [facility] [id number]) OT [id number] Comments OT Self-Feeding Comments NOt at meal time. OT ADL-Grooming Comments OT Grooming Comments NOt performed. OT ADL-Oral Care Comments Oral Care Comments NOt performed. OT ADL-Dressing General Eval Lower Body Dressing Ability Standby Assistance Areas Needing Assistance Socks Comments OT Dressing Comments Pt able to chelsea/doff his socks on his own with good safety. OT ADL-Bathing Bathing Type Bathing Type Shower General Evaluation Bathing Ability Minimal Assistance Areas Needing Assistance Wash/Dry Back Comments OT Bathing Comments Pt able to shower while seated and at times needing CGA and heavy use of grab bars while standing to wash his pericare needs. Pt would benefit from his to assist and to install grab bars for the showering safety. However pt took baths prior. M5 OT- IP IADL's Start: 07/22/22 10:47 Freq: Status: Active Protocol: Document 07/22/22 10:47 [facility] (Rec: 07/22/22 11:03 [facility] [id number]) OT-Instrumental Activities of Daily Living Deficits IADL Deficits Identified Deficits Home Safety Awareness Awareness of Need for Assistance at Home Decreased Awareness Ability to Problem Solve Emergency Able to Problem Solve Situations Home Safety Comments Pt is able to problem solve but at times appears to be in denial of his deficits. 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 Pt displays signs of mild to moderate R neglect. M6 OT- IP Functional Cognition Start: 07/22/22 10:47 Freq: Status: Active Protocol: Document 07/23/22 15:14 [facility] (Rec: 07/23/22 15:24 [facility] [id number]) Cognitive Factors Limiting Selfcare Function Cognitive Comments Cognitive Assessment Comments Pt able to follow commands well during ADl needs. Pt a little impulsive when tired and wanting to sit down before getting all the way back to surfaces. M7 OT- IP Mobility and Balance Start: 07/22/22 10:47 Freq: Status: Active Protocol: Document 07/23/22 15:14 [facility] (Rec: 07/23/22 15:24 [facility] [id number]) OT-Transfer Assessment Sit to and From Stand Sit to and from Stand Contact Guard Assistance Transfers Transfer Ability Contact Guard Assistance, Minimal Assistance Technique Transfer Destination Bed,Chair,Shower Stall Transfer Technique Stand Step Pivot Devices Transfer Assistive Devices Gait Belt,Front Wheeled Walker Comments Mobility Comments JOSÉ to help step over the threshold of the shower and CGA when pt tires to walk with the FWW. Pt able to transfer without the FWW and needing CGA to the bed. OT- Balance Assessment Sitting Balance and Reactions Static Sitting Balance Ability Normal Dynamic Sitting Balance Ability Good Standing Balance and Reactions Static Standing Balance Ability Good Dynamic Standing Balance Ability Fair M9 OT- IP Assessment and Plan Start: 07/22/22 10:47 Freq: Status: Active Protocol: Document 07/23/22 15:14 [facility] (Rec: 07/23/22 15:24 [facility] [id number]) OT Summary Assessment and Plan Potential Rehabilitation Potential Excellent Analytic Complexity at Evaluation High Summary OT Impairments Strength,Balance,Coordination, Functional Cognition, Functional Mobility,Grooming, Dressing,Toileting,Bathing, Toilet Transfers,Shower Transfers,Activity Tolerance Progress Towards Goals Progressing Toward Goals Assessment Summary Pt having difficulty to get the words out and still having some slurred speech at times. Pt still needing benefit of FWW for mobility due to decrease in dynamic balance. Pt right UE improving but still a little weaker and needing extra time for smoothness of movements during ADL needs. Prior pt was completely independent and able to take baths and walk in the grocery store without any devices. Pt is highly motivated and would be a good candidate for acute rehab in addition pt has a supportive to assist for his needs. Goals Self-Feeding Goal Independent Grooming Goal Independent Dressing Goal Independent Toileting Goal Independent Bathing Goal Independent Toilet Transfer Goal Independent Shower Transfer Goal Independent Days to Meet Goals 29 Frequency of Treatment Frequency Of Treatment Once a Day Treatment Plan OT Treatment Plan ADL Training,Functional Cognition Training,Functional Mobility,Patient/Family Education,Discharge Planning Other Treatment Recommendations and Next formal cog assessment, 9 hole Treatment Focus peg test on the R. Discharge Recommendations OT Discharge Recommendations Home with Assistance,Home Health,Acute Rehab,SNF vs Acute Rehab Home Equipment Needs FWW, BSC Transportation Needs at Discharge Private Vehicle
[2022-07-23] MEDS: METOPROLOL ER 50 MG TABLET PO (15:05)
[2022-07-23] MEDS: BISACODYL 10 MG SUPP PR (15:15)
[2022-07-24 01:39] VITALS: BP 158/89; PULSE 69; RESP 18; TEMP 36.1; O2SAT 93
[2022-07-24 03:57] VITALS: BP 153/86; PULSE 70; RESP 18; TEMP 36.3; O2SAT 95
[2022-07-24] MEDS: BISACODYL 10 MG SUPP PR (04:49)
--- NOTE | 2022-07-24 08:28 | PM.DS.1 ---
History of Present Illness History of Present Illness Date Patient Seen: 07/24/22 Chief complaint: stroke? Narrative: Per Dr. Ricardo, Mr. Barnes is a 72M with PMH CVA, and recent COVID booster who presents with dysarthria and aphasia. He notes he had a stroke over a decade ago. He essentially had no persistent deficits. Yesterday his noted that he had difficulty with speech, she thought it was possible a reaction to his COVID booster. He went for a nap. His symptoms did not improve. He did have imbalance. He was not having any sensory deficits. No upper or lower extremity weakness. In the ED workup was done, vitals notable for afebrile with blood pressure 170s/80s. Labs notable for WBC 6.4, hgb 14.4, plts 130. Creatinine 0.91. INR 1.2. Trop negative. CT head and CTA angio head and neck showed no acute process. EKG showed sinus rhythm with no evidence of ischemia. NIH was 8. He was admitted for further treatment. Social history: no nicotine, no significant EtOH, daily marijuana Family history: states no cardiac or stroke history in family Discharge Providers Provider Date of admission: 07/21/22 08:00 Discharge Date: 07/24/22 Primary care physician: Gonzalez Orellana MD Consults: 07/21/22 09:31 Consult to Discharge Planning Routine Comment: Consult to Occupational Therapy Evaluate & Treat Comment: Physician Instructions: Evaluate and treat Consult to Physical Therapy Evaluate & Treat Comment: Physician Instructions: Evaluate and Treat Consult to Speech Therapy Evaluate & Treat Comment: Physician Instructions: Evaluate and treat 07/23/22 12:55 Consult to Home Health Routine Comment: Reason For Exam: Home Health RN, P.T, O.T, Speech Discharge provider: Jose Oropeza DO Summary Hospital Course Discharge Diagnosis: 1.Acute CVA with history of CVA 2. Hypertension 3. UTI / acute cystitis 4. Thrombocytopenia 5. Obesity with BMI 38.6 Hospital Course: This is a 72 year old male with PMH of obesity, HTN and prior CVA admitted with new speech and coordination difficulties. Patient's obesity increases his stroke risk in addition to his hypertension. He was found to have a new infarct on MRI. PT/OT recommended acute rehab after initial evaluation, which was initially denied by his insurance though care management did state that after he was discharged it was approved after appeal and he will likely go to acute rehab tomorrow. Telemetry was unremarkable. Asa and statin therapies were continued and no plavix was given as NIH was >8 on presentation. He was initially found to have an acute cystitis on UA, and was treated with 5 days of ceftriaxone. Cultures were without growth and this therapy should suffice for any infectious cause. He continued to have difficulty with speech and coordation and some medication adjustments were made for his hypertension. He was additionally started on 12.5 mg of losartan in addition to his home beta dayanara. Plan was for discharge home with home health after insurance denial, but now that acute rehab is approved plan will be for acute rehab in the next few days, though he is stable for discharge home at this time and family will transport patient to rehab when able. Time Spent with Patient Time spent: Greater than 30 minutes Exam Vital Signs (past 8 hours): - 07/24/22 01:39 07/24/22 03:57 Temperature 97.0 F L 97.4 F L Pulse Rate 69 70 Respiratory Rate 18 18 Blood Pressure 158/89 H 153/86 H Pulse Oximetry 93 95 Oxygen Flow Rate 0 0 Oxygen Delivery Method Room Air Oxygen Flow Rate 0 Narrative Exam Narrative: GEN: no acute distress HEENT: moist mucous membranes, PERRL NECK: trachea midline, no JVD CV: regular rate and rhythm, no murmurs PULM: clear bilaterally, no wheezes, rhonchi, rales ABD: soft, nontender, nondistended, no organomegaly EXT: warm and well perfused with no edema NEURO: awake, alert, expressive aphasia with slow speech and slurred words though is understandable the majority of the time, cranial nerves 2-12 intact, no sensory deficit, normal upper and lower extremity strength Objective Labs Result Diagrams: 07/23/22 05:48 07/23/22 05:48 [facility] Social History household members: spouse Smoking Status: Never smoker alcohol intake: current Discharge Plan Discharge Plan Patient Disposition: Home Provider Discharge Comment: You were admitted to the hospital with a stroke. Please follow up with your PCP as soon as possible, ideally within 1 week to review hospitalization and additional outpatient needs. BP medication was also added in addition to other medications designed to reduce risk of having another stroke. Discharge orders & Medications Prescriptions: New aspirin 81 mg Tablet,Delayed Release (Dr/Ec) 81 mg PO DAILY 30 Days Qty: 30 0RF atorvastatin 40 mg tablet 40 mg PO BEDTIME 30 Days Qty: 30 0RF losartan 25 mg Tablet 12.5 mg PO DAILY 30 Days Qty: 5 0RF Continued gabapentin 600 mg tablet 600 mg PO DAILY metoprolol succinate [Toprol XL] 50 MG tablet extended release 24 hr 50 mg PO DAILY Qty: 0 Follow up/Referrals: Gonzalez Orellana MD [Primary Care Provider] - Diet/Activity/Treatments Diet: Diet as Tolerated Activity: As tolerated Visit Report/Discharge Packet Instructions: Ischemic Stroke Discharge Data Primary Care Provider: Gonzalez Orellana Quality VTE Deep Vein Thrombosis/Pulmonary Embolism Present on Admission: No
[2022-07-24 08:55] VITALS: BP 138/77; PULSE 61; RESP 16; TEMP 36.1; O2SAT 96
--- NOTE | 2022-07-24 09:35 | OT.IP.TRT ---
Current Diagnoses Cerebral infarction, unspecified (07/21/22) Occupational Therapy Treatment Note M2 OT-IP Current Condition Start: 07/22/22 10:47 Freq: Status: Discharge Protocol: Document 07/22/22 10:47 [facility] (Rec: 07/22/22 11:03 [facility] [id number]) Occupational Therapy Current Condition Current Condition Evaluation Date 07/22/22 Treatment Diagnosis L CVA with dysarthria, aphasia , UTi, HTN, R weakness Diagnosis Onset Date 07/21/22 M3 OT- IP Subjective and Pain Start: 07/22/22 10:47 Freq: Status: Discharge Protocol: Document 07/24/22 09:35 [facility] (Rec: 07/24/22 12:37 [facility] [id number]) OT- Subjective Occupational Therapy Visit Type Type Treatment Note Visit Start Time 09:35 Visit Stop Time 10:14 Total Visit Minutes 39 Occupational Therapy Visit Comments Patient Comments Pt agreed to do 9 hole peg test and [place] Making Part B. Patient/Caregiver Goals To go home. OT Pain Assessment Pain When Pain Assessed At Rest Pain Present Pain Present Denied Pain M4 OT- IP ADL's Start: 07/22/22 10:47 Freq: Status: Discharge Protocol: Document 07/24/22 09:35 [facility] (Rec: 07/24/22 12:37 [facility] [id number]) OT [id number] Comments OT Self-Feeding Comments Not at meal time , but noted coughing on liquids and cuing pt to go slowly and sit upright. OT ADL-Grooming Comments OT Grooming Comments NOt performed. OT ADL-Oral Care Comments Oral Care Comments NOt performed. OT ADL-Dressing Comments OT Dressing Comments Not performed. OT ADL-Toileting Comments OT Toileting Comments Not performed. Suggested may be good to have use of urinal at night, otherwise to assist. M5 OT- IP IADL's Start: 07/22/22 10:47 Freq: Status: Discharge Protocol: Document 07/22/22 10:47 [facility] (Rec: 07/22/22 11:03 [facility] [id number]) OT-Instrumental Activities of Daily Living Deficits IADL Deficits Identified Deficits Home Safety Awareness Awareness of Need for Assistance at Home Decreased Awareness Ability to Problem Solve Emergency Able to Problem Solve Situations Home Safety Comments Pt is able to problem solve but at times appears to be in denial of his deficits. 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 Pt displays signs of mild to moderate R neglect. M6 OT- IP Functional Cognition Start: 07/22/22 10:47 Freq: Status: Discharge Protocol: Document 07/24/22 09:35 [facility] (Rec: 07/24/22 12:37 [facility] [id number]) Cognitive Factors Limiting Selfcare Function Cognitive Comments Cognitive Assessment Comments Pt unable to complete [place] Making Part B and only 1/3 done after 180seconds and needing reminders for the directions. Pt performance implies severe impairments for visual attention, speed of processing, executive functioning, mental flexibility, and task switching and suggesting pt should not drive at this time. Pt's in full agreement that pt will not be driving. Pt continues to be impulsive and needing vc for safety. Pt at times has decreased awareness of his midline and positioning needs partial due to ataxic movements of his RUE . M7 OT- IP Mobility and Balance Start: 07/22/22 10:47 Freq: Status: Discharge Protocol: Document 07/24/22 09:35 [facility] (Rec: 07/24/22 12:37 [facility] [id number]) OT- Bed Mobility Assessment Supine to Sit Supine to Sit Assist Standby Assistance Sit to Supine Sit to Supine Assist Standby Assistance OT-Transfer Assessment Sit to and From Stand Sit to and from Stand Contact Guard Assistance Comments Mobility Comments CGA with FWW. M9 OT- IP Assessment and Plan Start: 07/22/22 10:47 Freq: Status: Discharge Protocol: Document 07/24/22 09:35 [facility] (Rec: 07/24/22 12:37 [facility] [id number]) OT Summary Assessment and Plan Potential Rehabilitation Potential Excellent Analytic Complexity at Evaluation High Summary OT Impairments Strength,Balance,Coordination, Functional Cognition, Functional Mobility,Grooming, Dressing,Toileting,Bathing, Toilet Transfers,Shower Transfers,Activity Tolerance Progress Towards Goals Progressing Toward Goals Assessment Summary Pt having difficulty with executive thinking, impulsive, and RUE 46 seconds and LUE 30 seconds for 9 hole peg test. Pt's able to get a FWW for him however the wheels were modified and seem unsafe and both pt's and OT agreed best to just get a FWW from the hospital for safety. Pt's has a supportive to assist for all pt's needs at this time. Pt will greatly benefit from home health as pt was not approved for acute rehab by his insurance. Goals Self-Feeding Goal Independent Grooming Goal Independent Dressing Goal Independent Toileting Goal Independent Bathing Goal Independent Toilet Transfer Goal Independent Shower Transfer Goal Independent Days to Meet Goals 28 Frequency of Treatment Frequency Of Treatment Once a Day Treatment Plan OT Treatment Plan ADL Training,Functional Cognition Training,Functional Mobility,Patient/Family Education,Discharge Planning Discharge Recommendations OT Discharge Recommendations Home with / Assist Available,Home Health Home Equipment Needs FWW, BSC Transportation Needs at Discharge Private Vehicle
[2022-07-24] MEDS: SENNOSIDES 8.6 MG TABLET PO (09:57)
[2022-07-24] MEDS: ENOXAPARIN 40 MG/0.4 ML SYRINGE SUBCUT (09:57)
[2022-07-24] MEDS: LOSARTAN 25 MG TABLET 12.5 MG PO (09:57)
[2022-07-24] MEDS: ASPIRIN EC 81 MG TABLET PO (09:57)
[2022-07-24] MEDS: DOCUSATE 100 MG CAPSULE PO (09:57)
[2022-07-24] MEDS: METOPROLOL ER 50 MG TABLET PO (09:57)
[2022-07-24] MEDS: SODIUM CHLORIDE 0.9% FLUSH 10 ML IV (09:58)
--- NOTE | 2022-07-24 10:20 | PC.NURSE ---
Patient scored a 4 on his NIH stroke scale. He is alert and oriented x3 but impulsive. Patient is fixated on his bowels. He had plenty of bowel medications yesterday including two suppositories. Patient has had a few small bms. Patient lying in bed and then got up with this RN in room. He wanted to sit on the commode. Patient sat up with no problems on the side of the bed, walker in front of him. He tried to stand and did not grab onto the walker properly, as he moves to fast and does follow direction well. Patient just about fell. This RN grabbed patients gown and put him back to the sitting position in bed. We then proceeded to get up and he was able to sit on the commode, but only sat for a couple minutes and wanted to go back to bed. He denies any pain, took his medications with water, he did cough some but was able to clear his throat. BS cta, and o sob when up ambulating. here to visit and knows that patient will be leaving around 1145.
--- NOTE | 2022-07-24 10:31 | PT.IPTN ---
Current Diagnoses Cerebral infarction, unspecified (07/21/22) Physical Therapy Treatment Note M2 PT-IP Current Condition Start: 07/21/22 13:03 Freq: NEEDED Status: Discharge Protocol: Document 07/22/22 11:03 SP (Rec: 07/22/22 15:10 SP [id number]) Physical Therapy Current Condition Current Condition Evaluation Date 07/21/22 Treatment Diagnosis CVA--L basal ganglia Onset Date 07/20/22 M3 PT-IP Subjective Start: 07/21/22 13:03 Freq: NEEDED Status: Discharge Protocol: Document 07/24/22 10:16 KS (Rec: 07/24/22 12:08 KS [id number]) Subjective Physical Therapy Visit Type Type Treatment Note Visit Start Time 10:16 Visit Stop Time 10:31 Total Visit Minutes 15 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 M4 PT-IP Mobility and Gait Start: 07/21/22 13:03 Freq: NEEDED Status: Discharge Protocol: Document 07/24/22 10:16 KS (Rec: 07/24/22 12:08 KS [id number]) PT-Bed Mobility Assessment Supine to Sit Supine to Sit Standby Assistance Sit to Supine Sit to Supine Standby Assistance Scooting Scooting to Edge of Bed Standby Assistance PT-Transfer Assessment Sit to and From Stand Sit to and from Stand Contact Guard Assistance,1 Person Assistance,Use of Upper Extremities Equipment Transfer Assistive Device Gait Belt,Front Wheeled Walker Transfers Transfer Destination Bed Transfer Technique Ambulated w/ FWW Transfer Ability Level of Assist Standby Assistance,Contact Guard Assistance,1 Person Assistance,Use of Upper Extremities Comments Mobility Comments Pt SBA to CGA, but remains impulsive and needs safety cues. Pts aware. Dispensed FWW for home use. Gait Assessment Gait Gait Assistance Required: Contact Guard Assist,1 Person Assist Distance (Feet) 60 Able to Maintain Weight Bearing Status Yes During Gait Assistive Devices Assistive Device Gait Belt,Front Wheeled Walker Gait Deviations General Gait Pattern Antalgic,Decreased Stride Length,Decreased Feet Clearance,Flexed Trunk,Lateral Trunk Lean Factors Limiting Gait Function Factors Limiting Gait Function Decreased Activity Tolerance, Decreased Strength,Poor Balance,Poor Safety Awareness Comments Gait Comments Decreased safety awareness and decreased stability and coordination on R side. PT-Balance Assessment Sitting Balance and Reactions Static Sitting Balance Ability Normal Dynamic Sitting Balance Ability Good Standing Balance and Reactions Static Standing Balance Ability Fair Dynamic Standing Balance Ability Fair Device Used FWW Comments Other Balance Tests/Deviations/Treatment see balance assessment details : in mobility. M5 PT-IP Objective Assessments Start: 07/21/22 13:03 Freq: NEEDED Status: Discharge Protocol: Document 07/21/22 13:03 AMB (Rec: 07/21/22 13:46 AMB [id number]) Orientation Orientation/Cognition Language Function Ability Garbled Speech,Word Finding Difficulties Safety Awareness Decreased Safety Awareness Gross Range of Motion Upper Extremity ROM Assessment Within Functional Limits Lower Extremity ROM Assessment Within Functional Limits Strength Upper Extremity Strength Assessment Right Impaired Lower Extremity Strength Assessment Right Impaired Comments Strength Comments At least 4/5 strength through ankle, knee, hip, 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 Sensation Assessment Sensation Gross Sensation Right UE Impaired,Right LE Impaired Sensation Description Tingling Muscle Tone Muscle Tone WNL Yes M6 PT-IP Treatment Start: 07/21/22 13:03 Freq: NEEDED Status: Discharge Protocol: Document 07/24/22 10:16 KS (Rec: 07/24/22 12:08 KS [id number]) Physical Therapy Treatment Exercises Exercises Ankle Pumps Education Education Provided Safety Other Treatments Other Treatment Performed Dispensed FWW for home use. M7 PT-IP Assessment and Plan Start: 07/21/22 13:03 Freq: NEEDED Status: Discharge Protocol: Document 07/24/22 10:16 KS (Rec: 07/24/22 12:08 KS [id number]) PT Summary Assessment and Plan Potential Rehabilitation Potential Good Summary Impairments Pain,Strength,Balance, Transfers,Gait Progress Towards Goals Progressing Toward Goals,Slow Progress due to Activity Tolerance Assessment Summary Pt still w/ decreased safety awareness, balance, and coordination but only requiring SBA to CGA and safety cues. Pt and feel ready to go home. Dispensed FWW for home use. Pt would benefit from acute rehab to maximize rehab potential. Goals Bed Mobility Goal Independent Transfer Goal Standby Assistance Gait Goal Standby Assistance Gait Distance 500 Days to Meet Goals 5 Frequency of Treatment Frequency Of Treatment Once a Day Treatment Plan Physical Therapy Treatment Plan Bed Mobility Training,Transfer Training,Gait Training, Balance Retraining, Neuromuscular Re-ed Other Recommendations and Next Treatment transfers, balance, further Focus distance gait with LRAD. Recommendations To Nursing Amount of Assist Needed 1 Person Assist Discharge Recommendations PT Discharge Recommendations Home with 14/04 Assist Available,Home Health,Acute Rehab Transportation Needs at Discharge Private Vehicle,Wheelchair/ Cabulance
--- NOTE | 2022-07-24 10:52 | CM.DPC ---
Addendum entered by Whit Parada R.N. 07/24/22 14:59: Checked back with Vandana at [facility], she still has not yet heard from [facility]. Let her know that this DC Manager Technical Support will also update Mike at [facility], and asked her if she can let him know tomorrow if she does get the auth, and she will reach out to him. She has already received the clinicals and paperwork. Updated Mike at [facility], and let him know that this is not final for patient to go to acute inpatient rehab as of yet until Vandana is able to speak to someone at [facility]. He will also contact Vandana tomorrow as well. Addendum entered by Whit Parada R.N. 07/24/22 14:17: After patient went home, spouse, Tia, had called and stated that she had heard from [facility] regarding appeal, and that they were going to stephanie patient going to acute inpatient rehab. Called Vandana at [facility], she had already spoken to spouse. She asked for latest progress note to be faxed. This DC Manager Technical Support faxed over yesterday's progress note, DC Summary from today, printed out med list and faxed it over. They are going to attempt to take patient tomorrow. Will call Mike at [facility] and update him as soon as it is known if patient can go to inpatient acute rehab tomorrow. Original Note: DCP Cont: Patient is to be discharged today. [facility] referral was already initiated yesterday. Called Mike at [facility] and gave him update that patient is being discharged today. Gave face to face to Rimma, and she will scan. Mike is aware that patient is being discharged home today. He has access to face to face, and DC Summary. P: Patient is to be discharged home today with [facility]. Whit Parada RN/Manager Play
[2022-07-24] MEDS: cefTRIAXone 1,000 MG in SODIUM CHLORIDE 0.9% 100 ML 200 MG IV (10:55)
== END 2022-07-24 12:01 | disposition home health service (06) | DRG 65 ==
LOC: ED 07:57 → AC 08:15
PROVIDERS: Emergency Medicine; Admitting Provider Internal Medicine; Emergency Provider Emergency Medicine; Family Provider Internal Medicine; PCP Internal Medicine; Referring Provider Emergency Medicine; Visit Provider Internal Medicine
DX: I63.9 Cerebral infarction, unspecified (principal); N30.00 Acute cystitis without hematuria; I10 Essential (primary) hypertension; R47.1 Dysarthria and anarthria; R47.01 Aphasia; R29.708 NIHSS score 8; D69.6 Thrombocytopenia, unspecified; I69.398 Other sequelae of cerebral infarction; G93.89 Other specified disorders of brain; R29.704 NIHSS score 4; Z20.822 Contact with and (suspected) exposure to COVID-19
CPT/HCPCS: 36415; 70496; 70498; 70551; 80048; 80061; 80305; 81003; 81015; 82550; 82962; 83036; 84484; 85025; 85027; 85610; 85730; 87086; 87635; 92507; 92610; 93005; 93306; 97116; 97162; 97167; 97530; 97535; 99285; C9803; J0696; J1650; J2405; Q9967